=== PATIENT | male | born 1950 | race African-American/Black ===

== ENCOUNTER 2017-02-18 17:03 | Emergency (ER) | payer OTHER ==
[~2017-02-18] VITALS: Ht 172.7 cm; Wt 70.0 kg
[~2017-02-18 17:03] MED LIST: UNK MEDS
[2017-02-18 18:32] LABS: BASOPHILS % 0.3 % (0.0-2.0); EOSINOPHILS % 3.1 % (0.0-5.0); HEMATOCRIT. 37.1 % (42.0-52.0); HEMOGLOBIN. 12.6 g/dL (14.0-18.0); LYMPHOCYTES % 30.4 % (20.0-50.0); MEAN CORPUSCULAR HEMOGLOBIN 33.1 pg (28.0-32.0); MEAN CORPUSCULAR VOLUME 97.4 fL (80.0-94.0); MEAN PLATELET VOLUME 7.7 fl (7.4-10.4); MONOCYTES % 11.6 % (2.0-8.0); NEUTROPHILS % 54.6 % (40.0-76.0); PLATELET 182 x1000/uL (130-400); RED BLOOD CELL COUNT 3.81 mill/uL (4.7-6.1); RED CELL DISTRIBUTION WIDTH 16.8 % (11.6-14.6)
[2017-02-18 18:36] LABS: CHLORIDE 111 mEq/L (98-107)
[2017-02-18 18:40] LABS: CARBON DIOXIDE 25 mEq/L (21-32); ETHANOL BLOOD < 10 mg/dL
[2017-02-18] MEDS ORDERED: POTASSIUM CHLORIDE 20MEQ TABLET SR PO ONE (19:00)
[2017-02-18 20:47] LABS: CLARITY URINE CLEAR (CLEAR); COLOR URINE YELLOW (YELLOW); KETONES URINE NEGATIVE (NEGATIVE); LEUKOCYTE ESTERASE URINE NEGATIVE (NEGATIVE); NITRITE URINE NEGATIVE (NEGATIVE); OCCULT BLOOD URINE NEGATIVE (NEGATIVE); PROTEIN URINE NEGATIVE (NEGATIVE); SPECIFIC GRAVITY URINE 1.018 (1.005-1.030)
[2017-02-18 21:10] LABS: *AMPHETAMINES SCREEN URINE NEGATIVE (NEGATIVE); *BARBITURATES SCREEN URINE NEGATIVE (NEGATIVE); *BENZODIAZEPINES SCREEN URINE NEGATIVE (NEGATIVE); *COCAINE SCREEN URINE PRESUMTIVE POSITIVE (NEGATIVE); CANNABINOID URINE SCREEN NEGATIVE (NEGATIVE); METHADONE URINE SCREEN NEGATIVE (NEGATIVE); OPIATES URINE SCREEN NEGATIVE (NEGATIVE); PHENCYCLIDINE URINE SCREEN NEGATIVE (NEGATIVE)
[2017-02-18 21:43] VITALS: BP 126/83
== END 2017-02-18 21:47 | disposition home or self-care (01) ==
LOC: ER 18:00
DX: R45.851 Suicidal ideations (principal); Z71.89 Other specified counseling; F14.10 Cocaine abuse, uncomplicated; I11.9 Hypertensive heart disease without heart failure; Z95.0 Presence of cardiac pacemaker; F10.10 Alcohol abuse, uncomplicated; Y90.0 Blood alcohol level of less than 20 mg/100 ml
CPT/HCPCS: 36415; 80053; 80305; 80307; 80329; 81003; 85025; 93005; 99285; G0482

== ENCOUNTER 2018-06-04 09:05 | Emergency (ER) | payer MEDICARE, OTHER ==
[~2018-06-04] VITALS: Ht 167.6 cm; Wt 61.0 kg
[2018-06-04] MEDS ORDERED: COLCHICINE 0.6MG TABLET PO ONE (10:45)
[2018-06-04 11:45] VITALS: BP 114/67
== END 2018-06-04 11:55 | disposition home or self-care (01) ==
LOC: ER 09:05
DX: M10.9 Gout, unspecified (principal)
CPT/HCPCS: 99283

== ENCOUNTER 2018-10-17 15:27 | Emergency (ER) | payer MEDICARE, OTHER ==
[~2018-10-17] VITALS: Ht 170.2 cm; Wt 65.0 kg
[2018-10-17] MEDS ORDERED: ALBUTEROL (0.083%) 2.5MG/3ML NEB HHN STA (15:47)
[2018-10-17] MEDS ORDERED: IPRATROPIUM BROMIDE (0.02%) 0.5MG/2.5ML NEB HHN STA (15:47)
[2018-10-17] MEDS ORDERED: METHYLPREDNISOLONE SOD SUCC 125 MG/2 ML VIAL IV STA (15:47)
[2018-10-17 16:19] VITALS: BP 91/57
== END 2018-10-17 17:35 | disposition home or self-care (01) ==
LOC: ER 15:27
DX: J44.1 Chronic obstructive pulmonary disease with (acute) exacerbation (principal); I11.9 Hypertensive heart disease without heart failure; Z95.0 Presence of cardiac pacemaker
CPT/HCPCS: 71045; 93005; 94644; 99285; J2930; J7611

== ENCOUNTER 2019-03-03 10:05 | Emergency (ER) | payer MEDICARE, OTHER ==
[~2019-03-03] VITALS: Ht 167.6 cm; Wt 66.0 kg
[2019-03-03] MEDS ORDERED: FUROSEMIDE 40MG/4ML VIAL IVP ONE (12:15)
[2019-03-03 12:27] LABS: HEMATOCRIT. 36.3 % (42.0-52.0); HEMOGLOBIN. 11.8 g/dL (14.0-18.0); MEAN CORPUSCULAR VOLUME 95.2 fL (80.0-94.0); PLATELET 212 x1000/uL (130-400); RED BLOOD CELL COUNT 3.81 mill/uL (4.7-6.1); RED CELL DISTRIBUTION WIDTH 17.7 % (11.6-14.6)
[2019-03-03 12:36] LABS: CHLORIDE 108 mEq/L (98-107)
[2019-03-03 12:47] LABS: PLATELET ESTIMATE NORMAL
[2019-03-03] MEDS ORDERED: ASPIRIN 81MG TABLET PO ONE (13:30)
[2019-03-03] MEDS ORDERED: NITROGLYCERIN 0.4MG TABLET SL SL PRN (14:00)
[2019-03-03] MEDS ORDERED: MAGNESIUM/ALUMINUM HYDROXIDE/SIMETHICONE 30ML UDC PO PRN (14:00)
[2019-03-03] MEDS ORDERED: CLONIDINE 0.1MG TABLET PO PRN (14:00)
[2019-03-03] MEDS ORDERED: GUAIFENESIN/DM 600MG/30MG ER TAB 12HR PO SCH (14:00)
[2019-03-03] MEDS ORDERED: GUAIFENESIN 200MG/10ML SUGAR FREE UDC PO PRN (14:00)
[2019-03-03] MEDS ORDERED: ACETAMINOPHEN 325MG TABLET PO PRN (14:00)
[2019-03-03] MEDS ORDERED: DIPHENHYDRAMINE 50MG/ML VIAL IV PRN (14:00)
[2019-03-03] MEDS ORDERED: DOCUSATE SODIUM 100MG CAPSULE PO PRN (14:00)
[2019-03-03] MEDS ORDERED: LORAZEPAM 0.5MG TABLET PO PRN (14:00)
[2019-03-03] MEDS ORDERED: TRAMADOL 50MG TABLET PO PRN (14:00)
[2019-03-03] MEDS ORDERED: ONDANSETRON HCL 4MG/2ML INJ IV PRN (14:00)
[2019-03-03] MEDS ORDERED: IPRATROPIUM/ALBUTEROL 0.5-3(2.5)MG/3ML NEB NEB PRN (14:00)
[2019-03-03] MEDS ORDERED: ENOXAPARIN 40MG/0.4ML SYR SUBCUT SCH (14:00)
[2019-03-03 15:08] LABS: VITAMIN B12 SERUM 947 pg/mL (211-911)
[2019-03-03 15:17] LABS: FOLIC ACID (FOLATE) SERUM >20 ng/mL ng/mL (>5.38)
[2019-03-03 15:28] LABS: CREATINE KINASE MB FRACTION 5.4 ng/mL (0.5-3.6)
[2019-03-03 17:15] VITALS: BP 115/73
[2019-03-03] MEDS ORDERED: FAMOTIDINE 20MG TABLET PO SCH (21:00)
[2019-03-03] MEDS ORDERED: SPIRONOLACTONE 25MG TABLET PO SCH (21:00)
[2019-03-03] MEDS ORDERED: ZOLPIDEM TARTRATE 5MG TABLET PO PRN (21:00)
[2019-03-03] MEDS ORDERED: FUROSEMIDE 40MG/4ML VIAL IVP SCH (21:00)
[2019-03-04] MEDS ORDERED: ASPIRIN 325MG EC TABLET PO SCH (09:00)
== END 2019-03-03 17:16 | disposition left against medical advice (07) ==
LOC: ER 10:05 → SUPCPDRO 13:50 → ER 17:16 → CANBEDREQ 18:28
DX: I11.0 Hypertensive heart disease with heart failure (principal); I50.9 Heart failure, unspecified; J96.90 Respiratory failure, unspecified, unspecified whether with hypoxia or hypercapnia; R26.2 Difficulty in walking, not elsewhere classified; J44.9 Chronic obstructive pulmonary disease, unspecified; E44.1 Mild protein-calorie malnutrition; E83.51 Hypocalcemia; D64.9 Anemia, unspecified; F10.10 Alcohol abuse, uncomplicated; Z68.23 Body mass index [BMI] 23.0-23.9, adult; Y90.0 Blood alcohol level of less than 20 mg/100 ml; Z79.899 Other long term (current) drug therapy; Z95.0 Presence of cardiac pacemaker; Z71.41 Alcohol abuse counseling and surveillance of alcoholic
CPT/HCPCS: 36415; 71045; 80053; 80061; 80320; 82550; 82553; 82607; 82746; 83036; 83540; 83550; 83880; 84484; 85025; 93005; 93970; 96374; 99284; J1940; G0480

== ENCOUNTER 2019-03-14 11:24 | Inpatient (IN) | payer MEDICARE, OTHER ==
[~2019-03-14] VITALS: Ht 177.8 cm; Wt 63.5 kg
[2019-03-14] MEDS ORDERED: METHYLPREDNISOLONE SOD SUCC 125 MG/2 ML VIAL IV STA (12:20)
[2019-03-14] MEDS ORDERED: IPRATROPIUM BROMIDE (0.02%) 0.5MG/2.5ML NEB HHN STA (12:20)
[2019-03-14] MEDS ORDERED: MAGNESIUM 2 G PREMIX 50 ML IV STA (12:20)
[2019-03-14] MEDS ORDERED: ALBUTEROL (0.083%) 2.5MG/3ML NEB HHN STA (12:20)
[2019-03-14] MEDS ORDERED: FUROSEMIDE 20MG/2ML VIAL IVP ONE (12:30)
[2019-03-14 13:35] LABS: BASOPHILS % 0.7 % (0.0-2.0); EOSINOPHILS % 0.5 % (0.0-5.0); HEMATOCRIT. 41.8 % (42.0-52.0); HEMOGLOBIN. 13.6 g/dL (14.0-18.0); LYMPHOCYTES % 14.8 % (20.0-50.0); MEAN CORPUSCULAR HEMOGLOBIN 30.3 pg (28.0-32.0); MEAN CORPUSCULAR VOLUME 93.1 fL (80.0-94.0); MONOCYTES % 10.1 % (2.0-8.0); NEUTROPHILS % 73.9 % (40.0-76.0); PLATELET 225 x1000/uL (130-400); RED BLOOD CELL COUNT 4.49 mill/uL (4.7-6.1); RED CELL DISTRIBUTION WIDTH 18.9 % (11.6-14.6)
[2019-03-14 13:42] LABS: CHLORIDE 107 mEq/L (98-107); INR 1.7; PROTHROMBIN TIME 16.7 sec (9.6-11.0)
[2019-03-14] MEDS ORDERED: POTASSIUM CHLORIDE 20MEQ TABLET SR PO ONE (15:15)
[2019-03-14] MEDS ORDERED: ACETAMINOPHEN 325MG TABLET PO PRN (18:00)
[2019-03-14] MEDS ORDERED: IPRATROPIUM/ALBUTEROL 0.5-3(2.5)MG/3ML NEB HHN PRN (18:00)
[2019-03-14] MEDS ORDERED: ONDANSETRON HCL 4MG/2ML INJ IV PRN (18:00)
[2019-03-14 18:25] LABS: CLARITY URINE CLEAR (CLEAR); COLOR URINE YELLOW (YELLOW); KETONES URINE NEGATIVE (NEGATIVE); LEUKOCYTE ESTERASE URINE NEGATIVE (NEGATIVE); NITRITE URINE NEGATIVE (NEGATIVE); OCCULT BLOOD URINE NEGATIVE (NEGATIVE); PROTEIN URINE NEGATIVE (NEGATIVE); SPECIFIC GRAVITY URINE 1.006 (1.005-1.030)
[2019-03-14] MEDS ORDERED: METHYLPREDNISOLONE SOD SUCC 40 MG/ML VIAL IV NR (18:30)
[2019-03-14 18:41] LABS: *AMPHETAMINES SCREEN URINE NEGATIVE (NEGATIVE); *BARBITURATES SCREEN URINE NEGATIVE (NEGATIVE); *BENZODIAZEPINES SCREEN URINE NEGATIVE (NEGATIVE); *COCAINE SCREEN URINE NEGATIVE (NEGATIVE); OPIATES URINE SCREEN NEGATIVE (NEGATIVE)
[2019-03-14 18:42] LABS: CANNABINOID URINE SCREEN NEGATIVE (NEGATIVE); METHADONE URINE SCREEN NEGATIVE (NEGATIVE); PHENCYCLIDINE URINE SCREEN NEGATIVE (NEGATIVE)
[2019-03-14 19:38] LABS: LDL CHOLESTEROL 34 mg/dL (5-100)
[2019-03-14 19:40] LABS: HDL CHOLESTEROL 14 mg/dL (40-59)
[2019-03-14 20:00] LABS: HEPATITIS B SURFACE ANTIGEN NEGATIVE
[2019-03-14 20:18] VITALS: BP 100/73
[2019-03-14 20:29] LABS: HEPATITIS A AB IGM NEGATIVE (NEGATIVE)
[2019-03-15] VITALS: BP 100/63
[2019-03-15] MEDS: ENOXAPARIN 40MG/0.4ML SYR SUBCUT SCH ×2 (01:06→20:50)
[2019-03-15] MEDS: METHYLPREDNISOLONE SOD SUCC 40 MG/ML VIAL IV SCH ×3 (02:09→17:29)
[2019-03-15 04:00] VITALS: BP 99/74
[2019-03-15] MEDS: IPRATROPIUM/ALBUTEROL 0.5-3(2.5)MG/3ML NEB HHN SCH ×6 (04:48→21:11)
[2019-03-15 07:29] LABS: CHLORIDE 108 mEq/L (98-107)
[2019-03-15 07:44] LABS: BASOPHILS % 0.3 % (0.0-2.0); HEMOGLOBIN. 11.1 g/dL (14.0-18.0); LYMPHOCYTES % 11.9 % (20.0-50.0); MEAN CORPUSCULAR HEMOGLOBIN 31.4 pg (28.0-32.0); MEAN CORPUSCULAR VOLUME 93.4 fL (80.0-94.0); MEAN PLATELET VOLUME 9.1 fl (7.4-10.4); MONOCYTES % 3.9 % (2.0-8.0); NEUTROPHILS % 83.9 % (40.0-76.0); PLATELET 172 x1000/uL (130-400); RED BLOOD CELL COUNT 3.53 mill/uL (4.7-6.1); RED CELL DISTRIBUTION WIDTH 18.7 % (11.6-14.6)
[2019-03-15 08:00] VITALS: BP 100/51
[2019-03-15] MEDS ORDERED: FUROSEMIDE 40MG/4ML VIAL IVP SCH (09:00)
[2019-03-15 12:00] VITALS: BP 170/110
[2019-03-15] MEDS ORDERED: CLONIDINE 0.1MG TABLET PO PRN (12:45)
[2019-03-15 16:00] VITALS: BP 127/98
[2019-03-15 20:00] VITALS: BP 134/99
[2019-03-16] VITALS (9 sets, daily range): BP systolic 96–128; BP diastolic 66–98
[2019-03-16] MEDS: IPRATROPIUM/ALBUTEROL 0.5-3(2.5)MG/3ML NEB HHN SCH ×6 (00:35→20:55)
[2019-03-16] MEDS: METHYLPREDNISOLONE SOD SUCC 40 MG/ML VIAL IV SCH ×2 (02:54→18:02)
[2019-03-16] MEDS: PREDNISONE 20MG TABLET PO SCH ×2 (08:54→14:37)
[2019-03-16] MEDS ORDERED: FUROSEMIDE 40MG TABLET PO SCH ×2 (09:00→17:15)
[2019-03-16 09:44] LABS: HEMATOCRIT. 33.7 % (42.0-52.0); HEMOGLOBIN. 10.9 g/dL (14.0-18.0); MEAN CORPUSCULAR HEMOGLOBIN 30.9 pg (28.0-32.0); MEAN CORPUSCULAR VOLUME 95.7 fL (80.0-94.0); MEAN PLATELET VOLUME 9.4 fl (7.4-10.4); PLATELET 180 x1000/uL (130-400); RED BLOOD CELL COUNT 3.52 mill/uL (4.7-6.1); RED CELL DISTRIBUTION WIDTH 18.8 % (11.6-14.6)
[2019-03-16] MEDS ORDERED: POTASSIUM CHLORIDE 20MEQ/PACKET PO SCH (10:45)
[2019-03-16] MEDS: TAMSULOSIN HCL 0.4MG SR CAPSULE PO SCH (14:37)
[2019-03-16] MEDS ORDERED: CARVEDILOL 6.25 MG TABLET PO NR (17:45)
[2019-03-16] MEDS ORDERED: FUROSEMIDE 40MG/4ML VIAL IVP SCH (17:45)
[2019-03-16 17:46] LABS: NUCLEATED RED BLOOD CELLS 1 /100 WBC; PLATELET ESTIMATE NORMAL
[2019-03-16 18:14] LABS: BG BASE EXCESS -12.3 mmol/L (-2.0-2.0); BG CARBOXYHEMOGLOBIN 0.3 % (0.5-1.5); BG DEOXYHEMOGLOBIN 0.2 % (0.0-5.0); BG FRACTION INSPIRED OXYGEN 100; BG HCO3 ACT 8.7 mmol/L (22.0-26.0); BG METHEMOGLOBIN 0.3 % (0.0-1.5); BG OXYGEN SATURATION 99.8 % (92.0-98.5); BG OXYHEMOGLOBIN 99.2 % (94.0-97.0); BG PCO2 13.1 mmHg (35.0-45.0); BG PH 7.442 (7.350-7.450); BG PO2 491.6 mmHg (75.0-100.0); BG SAMPLE SITE RIGHT RADIAL; BG TOTAL HEMOGLOBIN 12.8 g/dL (12.0-18.0); BG VENT MODE MASK - NRB
[2019-03-16] MEDS ORDERED: MORPHINE SULFATE 2 MG/ML CPJ (NOT FOR IM USE) IV PRN (18:15)
[2019-03-16] MEDS: ENOXAPARIN 40MG/0.4ML SYR SUBCUT SCH (21:43)
[2019-03-16] MEDS ORDERED: PIPERACILLIN/TAZOBACTAM 3.375 G/VIAL IV SCH (22:00)
[2019-03-16] MEDS ORDERED: SODIUM BICARBONATE 8.4% 1 MEQ/ML 50ML SYR IV NR (22:15)
[2019-03-16] MEDS ORDERED: VANCOMYCIN 1250MG in DEXTROSE 5% WATER 250ML IV NR (23:00)
[2019-03-16] MEDS: PIPERACILLIN/TAZOBACTAM 3.375 G in DEXT 5% WATER 100 ML IV SCH (23:19)
[2019-03-17] VITALS (81 sets, daily range): BP systolic 47–166; BP diastolic 25–99
[2019-03-17] MEDS: IPRATROPIUM/ALBUTEROL 0.5-3(2.5)MG/3ML NEB HHN SCH ×6 (00:58→20:21)
[2019-03-17] MEDS: METHYLPREDNISOLONE SOD SUCC 40 MG/ML VIAL IV SCH ×3 (01:09→17:15)
[2019-03-17] MEDS: LORAZEPAM 2MG/ML CPJ IV PRN (02:51)
[2019-03-17 05:28] LABS: BG BASE EXCESS -14.7 mmol/L (-2.0-2.0); BG CARBOXYHEMOGLOBIN 0.5 % (0.5-1.5); BG FRACTION INSPIRED OXYGEN 60; BG HCO3 ACT 10.7 mmol/L (22.0-26.0); BG METHEMOGLOBIN 0.3 % (0.0-1.5); BG OXYHEMOGLOBIN 98.2 % (94.0-97.0); BG PCO2 24.8 mmHg (35.0-45.0); BG PH 7.252 (7.350-7.450); BG PO2 182.2 mmHg (75.0-100.0); BG SAMPLE SITE RIGHT RADIAL; BG TOTAL HEMOGLOBIN 13.2 g/dL (12.0-18.0)
[2019-03-17] MEDS ORDERED: DEXTROSE 50% WATER 50ML SYRINGE IV ONE (05:50)
[2019-03-17] MEDS: PIPERACILLIN/TAZOBACTAM 3.375 G in DEXT 5% WATER 100 ML IV SCH ×3 (06:00→21:32)
[2019-03-17] MEDS ORDERED: PROPOFOL 10MG/ML 100ML 100 ML IV PRN (06:30)
[2019-03-17] MEDS ORDERED: SUCCINYLCHOLINE CHLORIDE 200MG/10ML IV ONE (06:45)
[2019-03-17] MEDS ORDERED: ETOMIDATE 2MG/ML 10ML VIAL IV ONE (06:45)
[2019-03-17] MEDS ORDERED: PHENYLEPHRINE 40 MG in DEXT 5% WATER 246 ML IV PRN (07:00)
[2019-03-17] MEDS ORDERED: NOREPINEPHRINE 32 MG in DEXT 5% WATER 468 ML IV PRN (07:00)
[2019-03-17] MEDS: SODIUM BICARBONATE 100 MEQ in DEXTROSE 5% WATER 1,000 ML IV SCH ×2 (07:00→21:33)
[2019-03-17] MEDS: TAMSULOSIN HCL 0.4MG SR CAPSULE PO SCH (08:55)
[2019-03-17] MEDS ORDERED: CARVEDILOL 6.25 MG TABLET PO SCH (09:00)
[2019-03-17 09:27] LABS: BG BASE EXCESS -10.6 mmol/L (-2.0-2.0); BG CARBOXYHEMOGLOBIN 0.1 % (0.5-1.5); BG DEOXYHEMOGLOBIN 0.1 % (0.0-5.0); BG FRACTION INSPIRED OXYGEN 100; BG HCO3 ACT 12.6 mmol/L (22.0-26.0); BG METHEMOGLOBIN 0.3 % (0.0-1.5); BG OXYGEN SATURATION 99.9 % (92.0-98.5); BG OXYHEMOGLOBIN 99.5 % (94.0-97.0); BG PH 7.375 (7.350-7.450); BG SAMPLE SITE RIGHT RADIAL; BG TIDAL VOLUME(mL) 500 mL; BG TOTAL HEMOGLOBIN 12.3 g/dL (12.0-18.0); BG VENT MODE VENT - A/C; BG VENT RATE 18 set
[2019-03-17] MEDS ORDERED: LIDOCAINE HCL 1% 20ML VIAL (Pyxis) INJ ONE (10:51)
[2019-03-17] MEDS ORDERED: SODIUM BICARBONATE 4% (2.4MEQ) 5ML VIAL IV ONE (10:51)
[2019-03-17] MEDS ORDERED: NITROGLYCERIN 50MG PREMIX 250 ML IV PRN (11:30)
[2019-03-17] MEDS ORDERED: MIDAZOLAM HCL 100 MG in DEXT 5% WATER 80 ML IV PRN (11:45)
[2019-03-17] MEDS: DOBUTAMINE 250MG PREMIX 250 ML IV SCH (13:01)
[2019-03-17 13:17] LABS: HEMATOCRIT. 35.8 % (42.0-52.0); HEMOGLOBIN. 11.6 g/dL (14.0-18.0); MEAN CORPUSCULAR HEMOGLOBIN 30.3 pg (28.0-32.0); MEAN CORPUSCULAR VOLUME 93.9 fL (80.0-94.0); PLATELET 183 x1000/uL (130-400); RED BLOOD CELL COUNT 3.81 mill/uL (4.7-6.1); RED CELL DISTRIBUTION WIDTH 19.6 % (11.6-14.6)
[2019-03-17 13:21] LABS: INR 1.9; PROTHROMBIN TIME 19.3 sec (9.6-11.0)
[2019-03-17 13:49] LABS: NUCLEATED RED BLOOD CELLS 5 /100 WBC; PLATELET ESTIMATE NORMAL
[2019-03-17] MEDS: VANCOMYCIN 1 G PREMIX 200 ML IV SCH (14:00)
[2019-03-17] MEDS: FENTANYL CITRATE/PF 500 MCG in SODIUM CHLORIDE 0.9% 40 ML IV PRN (17:11)
[2019-03-17] MEDS: PANTOPRAZOLE SODIUM 40 MG/VIAL IV SCH (17:14)
[2019-03-18] VITALS (97 sets, daily range): BP systolic 79–120; BP diastolic 48–81
[2019-03-18] MEDS: IPRATROPIUM/ALBUTEROL 0.5-3(2.5)MG/3ML NEB HHN SCH ×6 (00:06→20:51)
[2019-03-18] MEDS: PIPERACILLIN/TAZOBACTAM 3.375 G in DEXT 5% WATER 100 ML IV SCH ×3 (05:33→21:35)
[2019-03-18 05:46] LABS: HEMATOCRIT. 35.7 % (42.0-52.0); HEMOGLOBIN. 11.8 g/dL (14.0-18.0); MEAN CORPUSCULAR HEMOGLOBIN 30.6 pg (28.0-32.0); MEAN CORPUSCULAR VOLUME 92.9 fL (80.0-94.0); MEAN PLATELET VOLUME 9.6 fl (7.4-10.4); PLATELET 142 x1000/uL (130-400); RED BLOOD CELL COUNT 3.84 mill/uL (4.7-6.1); RED CELL DISTRIBUTION WIDTH 19.4 % (11.6-14.6)
[2019-03-18 05:52] LABS: INR 1.9; PROTHROMBIN TIME 18.8 sec (9.6-11.0)
[2019-03-18 07:43] LABS: PLATELET ESTIMATE NORMAL
[2019-03-18 07:48] LABS: BG BASE EXCESS 5.4 mmol/L (-2.0-2.0); BG CARBOXYHEMOGLOBIN 0.3 % (0.5-1.5); BG DEOXYHEMOGLOBIN 3.5 % (0.0-5.0); BG FRACTION INSPIRED OXYGEN 40; BG HCO3 ACT 25.9 mmol/L (22.0-26.0); BG METHEMOGLOBIN 0.3 % (0.0-1.5); BG OXYGEN SATURATION 96.5 % (92.0-98.5); BG OXYHEMOGLOBIN 95.9 % (94.0-97.0); BG PH 7.616 (7.350-7.450); BG PO2 84.7 mmHg (75.0-100.0); BG SAMPLE SITE RIGHT RADIAL; BG TIDAL VOLUME(mL) 500 mL; BG TOTAL HEMOGLOBIN 11.9 g/dL (12.0-18.0); BG VENT MODE VENT - A/C; BG VENT RATE 18 set
[2019-03-18] MEDS: TAMSULOSIN HCL 0.4MG SR CAPSULE PO SCH (08:10)
[2019-03-18] MEDS: PANTOPRAZOLE SODIUM 40 MG/VIAL IV SCH ×2 (08:24→16:37)
[2019-03-18] MEDS: METHYLPREDNISOLONE SOD SUCC 40 MG/ML VIAL IV SCH ×2 (08:24→16:37)
[2019-03-18] MEDS ORDERED: KCL 20MEQ/100ML PREMIX 100 ML IV SCH (09:00)
[2019-03-18] MEDS: VANCOMYCIN 1 G PREMIX 200 ML IV SCH (10:00)
[2019-03-18] MEDS: DOBUTAMINE 250MG PREMIX 250 ML IV SCH (10:15)
[2019-03-18] MEDS: DEXT 5%/0.45% NACL 1000ML 1,000 ML IV SCH (10:30)
[2019-03-18] MEDS: MIDODRINE HCL 5MG TABLET PO SCH ×2 (11:41→16:37)
[2019-03-18] MEDS ORDERED: POTASSIUM CHLORIDE INJ 40 MEQ in DEXT 5% WATER 250 ML IV SCH (12:00)
[2019-03-18] MEDS: FENTANYL CITRATE/PF 500 MCG in SODIUM CHLORIDE 0.9% 40 ML IV PRN (22:45)
[2019-03-19] VITALS (95 sets, daily range): BP systolic 74–119; BP diastolic 31–80
[2019-03-19] MEDS: IPRATROPIUM/ALBUTEROL 0.5-3(2.5)MG/3ML NEB HHN SCH ×6 (00:22→20:43)
[2019-03-19] MEDS: DOBUTAMINE 250MG PREMIX 250 ML IV SCH (05:51)
[2019-03-19 05:52] LABS: HEMATOCRIT 37.8 % (42.0-52.0); HEMOGLOBIN 12.5 g/dL (14.0-18.0); MEAN CORPUSCULAR HEMOGLOBIN 30.2 pg (28.0-32.0); MEAN CORPUSCULAR VOLUME 91.8 fL (80.0-94.0); PLATELET 128 x1000/uL (130-400); RED BLOOD CELL COUNT 4.12 mill/uL (4.7-6.1); RED CELL DISTRIBUTION WIDTH 19.7 % (11.6-14.6)
[2019-03-19] MEDS: DEXT 5%/0.45% NACL 1000ML 1,000 ML IV SCH (05:52)
[2019-03-19] MEDS: PIPERACILLIN/TAZOBACTAM 3.375 G in DEXT 5% WATER 100 ML IV SCH ×3 (05:52→21:49)
[2019-03-19 06:01] LABS: INR 1.7; PROTHROMBIN TIME 17.6 sec (9.6-11.0)
[2019-03-19 06:04] LABS: CHLORIDE 93 mEq/L (98-107)
[2019-03-19 08:37] LABS: BG BASE EXCESS 11.9 mmol/L (-2.0-2.0); BG CARBOXYHEMOGLOBIN 0.1 % (0.5-1.5); BG FRACTION INSPIRED OXYGEN 40; BG HCO3 ACT 33.5 mmol/L (22.0-26.0); BG METHEMOGLOBIN 0.2 % (0.0-1.5); BG OXYHEMOGLOBIN 98.7 % (94.0-97.0); BG PCO2 32.9 mmHg (35.0-45.0); BG PH 7.626 (7.350-7.450); BG SAMPLE SITE RIGHT BRACHIAL; BG TIDAL VOLUME(mL) 500 mL; BG TOTAL HEMOGLOBIN 11.5 g/dL (12.0-18.0); BG VENT MODE VENT - A/C; BG VENT RATE 14 set
[2019-03-19] MEDS ORDERED: POTASSIUM CHLORIDE INJ 40 MEQ in DEXT 5% WATER 250 ML IV NR (09:00)
[2019-03-19] MEDS: METHYLPREDNISOLONE SOD SUCC 40 MG/ML VIAL IV SCH ×2 (09:05→16:17)
[2019-03-19] MEDS: PANTOPRAZOLE SODIUM 40 MG/VIAL IV SCH ×2 (09:05→16:17)
[2019-03-19] MEDS: MIDODRINE HCL 5MG TABLET PO SCH ×3 (09:06→19:42)
[2019-03-19] MEDS: DEXT 5%/0.45% NACL KCL 20MEQ/L 1,000 ML IV SCH (09:07)
[2019-03-19 09:21] LABS: PHOSPHORUS 2.4 mg/dL (2.5-4.9)
[2019-03-19] MEDS ORDERED: MAGNESIUM 4 G PREMIX 100 ML IV NR (11:00)
[2019-03-19 11:09] LABS: BG CARBOXYHEMOGLOBIN 0.4 % (0.5-1.5); BG DEOXYHEMOGLOBIN 1.1 % (0.0-5.0); BG FRACTION INSPIRED OXYGEN 40; BG HCO3 ACT 35.6 mmol/L (22.0-26.0); BG METHEMOGLOBIN 0.9 % (0.0-1.5); BG OXYGEN SATURATION 98.9 % (92.0-98.5); BG OXYHEMOGLOBIN 97.6 % (94.0-97.0); BG PCO2 37.4 mmHg (35.0-45.0); BG PH 7.596 (7.350-7.450); BG PO2 166.7 mmHg (75.0-100.0); BG PRESSURE SUPPORT 8; BG SAMPLE SITE RIGHT BRACHIAL; BG TOTAL HEMOGLOBIN 12.7 g/dL (12.0-18.0); BG VENT MODE VENT - CPAP
[2019-03-19] MEDS: VANCOMYCIN 1 G PREMIX 200 ML IV SCH (13:19)
[2019-03-19] MEDS ORDERED: POTASSIUM-SODIUM PHOSPHATE POWDER PACKET PO NR (14:30)
[2019-03-19 15:41] LABS: INR 1.6; PROTHROMBIN TIME 16.4 sec (9.6-11.0)
[2019-03-19] MEDS ORDERED: KCL 20MEQ/100ML PREMIX 100 ML IV SCH (21:30)
[2019-03-19] MEDS: LORAZEPAM 2MG/ML CPJ IV PRN (22:22)
[2019-03-20] VITALS (86 sets, daily range): BP systolic 71–133; BP diastolic 26–113
[2019-03-20] MEDS: IPRATROPIUM/ALBUTEROL 0.5-3(2.5)MG/3ML NEB HHN SCH ×6 (00:16→20:25)
[2019-03-20] MEDS ORDERED: NOREPINEPHRINE 16 MG in DEXT 5% WATER 234 ML IV PRN (02:01)
[2019-03-20] MEDS: LORAZEPAM 2MG/ML CPJ IV PRN (04:01)
[2019-03-20] MEDS: DOBUTAMINE 250MG PREMIX 250 ML IV SCH ×2 (04:01→18:17)
[2019-03-20] MEDS: PIPERACILLIN/TAZOBACTAM 3.375 G in DEXT 5% WATER 100 ML IV SCH ×3 (05:11→21:07)
[2019-03-20] MEDS: DEXT 5%/0.45% NACL KCL 20MEQ/L 1,000 ML IV SCH (05:11)
[2019-03-20 06:49] LABS: HEMATOCRIT. 34.2 % (42.0-52.0); HEMOGLOBIN. 11.2 g/dL (14.0-18.0); MEAN CORPUSCULAR HEMOGLOBIN 29.4 pg (28.0-32.0); MEAN CORPUSCULAR VOLUME 90.4 fL (80.0-94.0); MEAN PLATELET VOLUME 9.2 fl (7.4-10.4); PLATELET 132 x1000/uL (130-400); RED BLOOD CELL COUNT 3.79 mill/uL (4.7-6.1); RED CELL DISTRIBUTION WIDTH 19.5 % (11.6-14.6)
[2019-03-20 07:07] LABS: CHLORIDE 93 mEq/L (98-107)
[2019-03-20 07:37] LABS: INR 1.5; PROTHROMBIN TIME 15.2 sec (9.6-11.0)
[2019-03-20] MEDS: PANTOPRAZOLE SODIUM 40 MG/VIAL IV SCH ×2 (09:04→18:17)
[2019-03-20] MEDS: METHYLPREDNISOLONE SOD SUCC 40 MG/ML VIAL IV SCH ×2 (09:04→18:17)
[2019-03-20] MEDS: MIDODRINE HCL 5MG TABLET PO SCH ×3 (09:05→18:17)
[2019-03-20] MEDS: VANCOMYCIN 1 G PREMIX 200 ML IV SCH (09:05)
[2019-03-20] MEDS ORDERED: POTASSIUM CHLORIDE INJ 40 MEQ in DEXT 5% WATER 250 ML IV NR (10:15)
[2019-03-20 17:10] LABS: PLATELET ESTIMATE NORMAL
[2019-03-20 17:27] LABS: BG BASE EXCESS 8.5 mmol/L (-2.0-2.0); BG CARBOXYHEMOGLOBIN 0.4 % (0.5-1.5); BG DEOXYHEMOGLOBIN 0.9 % (0.0-5.0); BG HCO3 ACT 31.8 mmol/L (22.0-26.0); BG METHEMOGLOBIN 0.2 % (0.0-1.5); BG OXYGEN SATURATION 99.1 % (92.0-98.5); BG OXYHEMOGLOBIN 98.5 % (94.0-97.0); BG PCO2 39.1 mmHg (35.0-45.0); BG PH 7.528 (7.350-7.450); BG SAMPLE SITE RIGHT BRACHIAL; BG TIDAL VOLUME(mL) 500 mL; BG TOTAL HEMOGLOBIN 12.7 g/dL (12.0-18.0); BG VENT MODE VENT - SIMV; BG VENT RATE 8 set
[2019-03-20] MEDS: DIGOXIN 250MCG TABLET PO SCH (18:18)
[2019-03-21] VITALS (97 sets, daily range): BP systolic 73–149; BP diastolic 49–102
[2019-03-21] MEDS: DEXT 5%/0.45% NACL KCL 20MEQ/L 1,000 ML IV SCH ×2 (00:09→19:42)
[2019-03-21] MEDS: IPRATROPIUM/ALBUTEROL 0.5-3(2.5)MG/3ML NEB HHN SCH ×6 (00:26→20:12)
[2019-03-21] MEDS: LORAZEPAM 2MG/ML CPJ IV PRN ×2 (00:32→21:12)
[2019-03-21] MEDS: VANCOMYCIN 1 G PREMIX 200 ML IV SCH (01:12)
[2019-03-21] MEDS ORDERED: NOREPINEPHRINE 8 MG in DEXTROSE 5% WATER 250 ML IV PRN (02:00)
[2019-03-21] MEDS: PIPERACILLIN/TAZOBACTAM 3.375 G in DEXT 5% WATER 100 ML IV SCH ×3 (05:50→21:12)
[2019-03-21 05:51] LABS: HEMATOCRIT. 32.7 % (42.0-52.0); HEMOGLOBIN. 10.6 g/dL (14.0-18.0); MEAN CORPUSCULAR VOLUME 93.1 fL (80.0-94.0); MEAN PLATELET VOLUME 9.2 fl (7.4-10.4); PLATELET 117 x1000/uL (130-400); RED BLOOD CELL COUNT 3.51 mill/uL (4.7-6.1); RED CELL DISTRIBUTION WIDTH 19.1 % (11.6-14.6)
[2019-03-21 06:10] LABS: CHLORIDE 95 mEq/L (98-107)
[2019-03-21] MEDS: DOBUTAMINE 250MG PREMIX 250 ML IV SCH ×2 (07:48→16:48)
[2019-03-21] MEDS: PANTOPRAZOLE SODIUM 40 MG/VIAL IV SCH ×2 (08:12→17:52)
[2019-03-21] MEDS: METHYLPREDNISOLONE SOD SUCC 40 MG/ML VIAL IV SCH ×2 (08:12→17:52)
[2019-03-21] MEDS: MIDODRINE HCL 5MG TABLET PO SCH ×3 (08:13→17:52)
[2019-03-21 08:14] LABS: BG BASE EXCESS 5.1 mmol/L (-2.0-2.0); BG CARBOXYHEMOGLOBIN 0.3 % (0.5-1.5); BG DEOXYHEMOGLOBIN 1.3 % (0.0-5.0); BG HCO3 ACT 28.1 mmol/L (22.0-26.0); BG METHEMOGLOBIN 0.3 % (0.0-1.5); BG OXYGEN SATURATION 98.7 % (92.0-98.5); BG OXYHEMOGLOBIN 98.1 % (94.0-97.0); BG PCO2 35.6 mmHg (35.0-45.0); BG PH 7.515 (7.350-7.450); BG PO2 138.2 mmHg (75.0-100.0); BG SAMPLE SITE RIGHT BRACHIAL; BG TIDAL VOLUME(mL) 500 mL; BG TOTAL HEMOGLOBIN 11.2 g/dL (12.0-18.0); BG VENT MODE VENT - SIMV; BG VENT RATE 8 set
[2019-03-21] MEDS ORDERED: BISACODYL 10MG SUPP PR NR (09:45)
[2019-03-21 10:57] LABS: NUCLEATED RED BLOOD CELLS 2 /100 WBC
[2019-03-21 10:58] LABS: PLATELET ESTIMATE DECREASED
[2019-03-21] MEDS: DIGOXIN 250MCG TABLET PO SCH (17:52)
[2019-03-21] MEDS: METOCLOPRAMIDE HCL 10MG/2ML VIAL IV SCH ×2 (19:42→23:24)
[2019-03-22] VITALS (92 sets, daily range): BP systolic 98–148; BP diastolic 50–93
[2019-03-22] MEDS: IPRATROPIUM/ALBUTEROL 0.5-3(2.5)MG/3ML NEB HHN SCH ×6 (00:15→20:44)
[2019-03-22] MEDS: METOCLOPRAMIDE HCL 10MG/2ML VIAL IV SCH ×4 (05:21→23:59)
[2019-03-22] MEDS: PIPERACILLIN/TAZOBACTAM 3.375 G in DEXT 5% WATER 100 ML IV SCH ×3 (05:21→21:18)
[2019-03-22 05:39] LABS: HEMATOCRIT. 34.4 % (42.0-52.0); MEAN CORPUSCULAR HEMOGLOBIN 29.2 pg (28.0-32.0); MEAN CORPUSCULAR VOLUME 91.1 fL (80.0-94.0); MEAN PLATELET VOLUME 9.3 fl (7.4-10.4); PLATELET 118 x1000/uL (130-400); RED BLOOD CELL COUNT 3.77 mill/uL (4.7-6.1); RED CELL DISTRIBUTION WIDTH 19.3 % (11.6-14.6)
[2019-03-22 05:56] LABS: CHLORIDE 97 mEq/L (98-107)
[2019-03-22] MEDS: MIDODRINE HCL 5MG TABLET PO SCH ×3 (08:13→17:08)
[2019-03-22] MEDS: PANTOPRAZOLE SODIUM 40 MG/VIAL IV SCH ×2 (08:13→17:08)
[2019-03-22] MEDS: METHYLPREDNISOLONE SOD SUCC 40 MG/ML VIAL IV SCH ×2 (08:13→17:08)
[2019-03-22] MEDS: VANCOMYCIN 1 G PREMIX 200 ML IV SCH (08:13)
[2019-03-22] MEDS: DOBUTAMINE 250MG PREMIX 250 ML IV SCH (08:14)
[2019-03-22] MEDS: FENTANYL CITRATE/PF 500 MCG in SODIUM CHLORIDE 0.9% 40 ML IV PRN (08:37)
[2019-03-22] MEDS ORDERED: NA PHOS,M-B/NA PHOS,DI-BA ENEMA 118ML PR NR (10:00)
[2019-03-22 11:05] LABS: PLATELET ESTIMATE DECREASED
[2019-03-22] MEDS: DEXT 5%/0.45% NACL 1000ML 1,000 ML IV SCH (17:02)
[2019-03-22] MEDS: DIGOXIN 250MCG TABLET PO SCH (17:09)
[2019-03-22] MEDS: BUDESONIDE 0.5MG/2ML NEB HHN SCH (20:44)
[2019-03-22] MEDS: LORAZEPAM 2MG/ML CPJ IV PRN (22:40)
[2019-03-23] VITALS (99 sets, daily range): BP systolic 68–163; BP diastolic 53–96
[2019-03-23] MEDS: IPRATROPIUM/ALBUTEROL 0.5-3(2.5)MG/3ML NEB HHN SCH ×7 (00:21→23:58)
[2019-03-23] MEDS: DOBUTAMINE 250MG PREMIX 250 ML IV SCH ×2 (01:06→12:35)
[2019-03-23 06:08] LABS: HEMATOCRIT. 34.4 % (42.0-52.0); HEMOGLOBIN. 11.2 g/dL (14.0-18.0); MEAN CORPUSCULAR HEMOGLOBIN 29.9 pg (28.0-32.0); MEAN PLATELET VOLUME 9.1 fl (7.4-10.4); PLATELET 108 x1000/uL (130-400); RED BLOOD CELL COUNT 3.74 mill/uL (4.7-6.1); RED CELL DISTRIBUTION WIDTH 19.4 % (11.6-14.6)
[2019-03-23 06:12] LABS: CHLORIDE 96 mEq/L (98-107)
[2019-03-23] MEDS: PIPERACILLIN/TAZOBACTAM 3.375 G in DEXT 5% WATER 100 ML IV SCH ×3 (06:13→21:09)
[2019-03-23] MEDS: METOCLOPRAMIDE HCL 10MG/2ML VIAL IV SCH ×4 (06:13→23:43)
[2019-03-23] MEDS: LORAZEPAM 2MG/ML CPJ IV PRN ×2 (06:32→15:14)
[2019-03-23] MEDS: BUDESONIDE 0.5MG/2ML NEB HHN SCH ×2 (08:02→20:16)
[2019-03-23 08:41] LABS: PLATELET ESTIMATE SLIGHTLY DECREASED
[2019-03-23] MEDS: MIDODRINE HCL 5MG TABLET PO SCH ×3 (09:00→17:09)
[2019-03-23] MEDS: VANCOMYCIN 1 G PREMIX 200 ML IV SCH (09:03)
[2019-03-23] MEDS: PANTOPRAZOLE SODIUM 40 MG/VIAL IV SCH ×2 (09:03→17:03)
[2019-03-23] MEDS: METHYLPREDNISOLONE SOD SUCC 40 MG/ML VIAL IV SCH ×2 (09:03→17:03)
[2019-03-23 10:49] LABS: BG BASE EXCESS 7.2 mmol/L (-2.0-2.0); BG CARBOXYHEMOGLOBIN 0.1 % (0.5-1.5); BG DEOXYHEMOGLOBIN 1.2 % (0.0-5.0); BG FRACTION INSPIRED OXYGEN 40; BG HCO3 ACT 31.5 mmol/L (22.0-26.0); BG METHEMOGLOBIN 0.3 % (0.0-1.5); BG OXYGEN SATURATION 98.8 % (92.0-98.5); BG OXYHEMOGLOBIN 98.4 % (94.0-97.0); BG PCO2 43.5 mmHg (35.0-45.0); BG PH 7.478 (7.350-7.450); BG PO2 153.9 mmHg (75.0-100.0); BG PRESSURE SUPPORT 8; BG SAMPLE SITE PA LINE; BG TOTAL HEMOGLOBIN 11.5 g/dL (12.0-18.0); BG VENT MODE VENT - CPAP
[2019-03-23 11:36] LABS: PHOSPHORUS 1.2 mg/dL (2.5-4.9)
[2019-03-23] MEDS: DEXT 5%/0.45% NACL 1000ML 1,000 ML IV SCH (12:34)
[2019-03-23 13:22] LABS: BG BASE EXCESS 5.7 mmol/L (-2.0-2.0); BG CARBOXYHEMOGLOBIN 0.5 % (0.5-1.5); BG DEOXYHEMOGLOBIN 1.2 % (0.0-5.0); BG FRACTION INSPIRED OXYGEN 40; BG METHEMOGLOBIN 0.2 % (0.0-1.5); BG OXYGEN SATURATION 98.8 % (92.0-98.5); BG OXYHEMOGLOBIN 98.1 % (94.0-97.0); BG PCO2 42.2 mmHg (35.0-45.0); BG PH 7.469 (7.350-7.450); BG PO2 138.1 mmHg (75.0-100.0); BG PRESSURE SUPPORT 8; BG SAMPLE SITE RIGHT RADIAL; BG TOTAL HEMOGLOBIN 11.3 g/dL (12.0-18.0); BG VENT MODE VENT - CPAP
[2019-03-23] MEDS: DIGOXIN 250MCG TABLET PO SCH (17:04)
[2019-03-23] MEDS: DILTIAZEM HCL 5MG/ML 5ML VIAL IV PRN (21:10)
[2019-03-23] MEDS: DILTIAZEM HCL 30MG TABLET PO SCH (23:43)
[2019-03-24] VITALS (75 sets, daily range): BP systolic 92–151; BP diastolic 41–112
[2019-03-24] MEDS: LORAZEPAM 2MG/ML CPJ IV PRN ×2 (00:01→19:23)
[2019-03-24] MEDS: DILTIAZEM HCL 5MG/ML 5ML VIAL IV PRN (02:35)
[2019-03-24] MEDS: DOBUTAMINE 250MG PREMIX 250 ML IV SCH (02:52)
[2019-03-24] MEDS: IPRATROPIUM/ALBUTEROL 0.5-3(2.5)MG/3ML NEB HHN SCH ×5 (04:10→21:28)
[2019-03-24] MEDS: DILTIAZEM HCL 30MG TABLET PO SCH (06:00)
[2019-03-24 06:17] LABS: HEMATOCRIT. 32.2 % (42.0-52.0); HEMOGLOBIN. 10.5 g/dL (14.0-18.0); MEAN CORPUSCULAR HEMOGLOBIN 29.5 pg (28.0-32.0); MEAN PLATELET VOLUME 9.2 fl (7.4-10.4); PLATELET 106 x1000/uL (130-400); RED BLOOD CELL COUNT 3.54 mill/uL (4.7-6.1); RED CELL DISTRIBUTION WIDTH 19.9 % (11.6-14.6)
[2019-03-24 06:18] LABS: CHLORIDE 96 mEq/L (98-107)
[2019-03-24] MEDS: METOCLOPRAMIDE HCL 10MG/2ML VIAL IV SCH ×4 (06:44→23:11)
[2019-03-24] MEDS: BUDESONIDE 0.5MG/2ML NEB HHN SCH ×2 (07:59→21:28)
[2019-03-24] MEDS: DEXT 5%/0.45% NACL 1000ML 1,000 ML IV SCH (08:00)
[2019-03-24] MEDS: MIDODRINE HCL 5MG TABLET PO SCH ×3 (09:32→18:27)
[2019-03-24] MEDS: PANTOPRAZOLE SODIUM 40 MG/VIAL IV SCH ×2 (09:32→18:24)
[2019-03-24] MEDS: METHYLPREDNISOLONE SOD SUCC 40 MG/ML VIAL IV SCH (09:32)
[2019-03-24] MEDS ORDERED: MAGNESIUM 2 G PREMIX 50 ML IV SCH (10:00)
[2019-03-24 10:10] LABS: PLATELET ESTIMATE SLIGHTLY DECREASED
[2019-03-24] MEDS ORDERED: SODIUM PHOS,M-BASIC-D-BASIC 20 MM in DEXT 5% WATER 243.3333 ML IV SCH (11:00)
[2019-03-24] MEDS: DOCUSATE SODIUM SUGAR FREE 100MG/10ML UDC NG SCH (11:04)
[2019-03-24] MEDS: DILTIAZEM HCL 60MG TABLET PO SCH ×2 (14:31→21:10)
[2019-03-24] MEDS: DIGOXIN 250MCG TABLET PO SCH (18:26)
[2019-03-25] VITALS (12 sets, daily range): BP systolic 92–122; BP diastolic 54–83
[2019-03-25] MEDS: IPRATROPIUM/ALBUTEROL 0.5-3(2.5)MG/3ML NEB HHN SCH ×6 (01:15→20:33)
[2019-03-25] MEDS: LORAZEPAM 2MG/ML CPJ IV PRN ×2 (02:25→22:12)
[2019-03-25] MEDS: DEXT 5%/0.45% NACL 1000ML 1,000 ML IV SCH ×2 (04:30→22:13)
[2019-03-25] MEDS: DILTIAZEM HCL 60MG TABLET PO SCH ×3 (05:22→21:04)
[2019-03-25] MEDS: METOCLOPRAMIDE HCL 10MG/2ML VIAL IV SCH ×4 (05:33→23:04)
[2019-03-25 07:00] LABS: HEMOGLOBIN. 11.4 g/dL (14.0-18.0); MEAN CORPUSCULAR HEMOGLOBIN 29.5 pg (28.0-32.0); MEAN CORPUSCULAR VOLUME 90.5 fL (80.0-94.0); MEAN PLATELET VOLUME 9.3 fl (7.4-10.4); PLATELET 126 x1000/uL (130-400); RED BLOOD CELL COUNT 3.87 mill/uL (4.7-6.1); RED CELL DISTRIBUTION WIDTH 19.8 % (11.6-14.6)
[2019-03-25] MEDS ORDERED: PREDNISONE 20MG TABLET PO SCH (07:00)
[2019-03-25] MEDS: BUDESONIDE 0.5MG/2ML NEB HHN SCH ×2 (07:29→20:33)
[2019-03-25 08:13] LABS: CHLORIDE 98 mEq/L (98-107)
[2019-03-25 08:20] LABS: PHOSPHORUS 4.8 mg/dL (2.5-4.9)
[2019-03-25] MEDS: PANTOPRAZOLE SODIUM 40 MG/VIAL IV SCH ×2 (08:26→16:31)
[2019-03-25] MEDS: DOCUSATE SODIUM SUGAR FREE 100MG/10ML UDC NG SCH (08:26)
[2019-03-25] MEDS: MIDODRINE HCL 5MG TABLET PO SCH ×3 (08:27→16:30)
[2019-03-25 11:04] LABS: PLATELET ESTIMATE SLIGHTLY DECREASED
[2019-03-25] MEDS: FUROSEMIDE 40MG/4ML VIAL IVP SCH (11:52)
[2019-03-25] MEDS: PIPERACILLIN SODIUM/TAZOBACTAM 4.5 G in DEXT 5% WATER 100 ML IV SCH ×3 (11:56→23:07)
[2019-03-25] MEDS: ACETYLCYSTEINE 100MG/ML 10% VIAL 4ML INH SCH (15:42)
[2019-03-25] MEDS: DIGOXIN 250MCG TABLET PO SCH (17:19)
[2019-03-26] VITALS (12 sets, daily range): BP systolic 100–134; BP diastolic 33–74
[2019-03-26] MEDS: ACETYLCYSTEINE 100MG/ML 10% VIAL 4ML INH SCH ×3 (01:23→15:51)
[2019-03-26] MEDS: IPRATROPIUM/ALBUTEROL 0.5-3(2.5)MG/3ML NEB HHN SCH ×6 (01:24→20:56)
[2019-03-26] MEDS: DILTIAZEM HCL 60MG TABLET PO SCH ×2 (05:24→14:00)
[2019-03-26] MEDS: PIPERACILLIN SODIUM/TAZOBACTAM 4.5 G in DEXT 5% WATER 100 ML IV SCH ×3 (05:30→18:10)
[2019-03-26] MEDS: METOCLOPRAMIDE HCL 10MG/2ML VIAL IV SCH ×3 (05:31→18:10)
[2019-03-26] MEDS ORDERED: PREDNISONE 20MG TABLET PO SCH (07:20)
[2019-03-26 07:29] LABS: HEMATOCRIT. 31.2 % (42.0-52.0); HEMOGLOBIN. 10.4 g/dL (14.0-18.0); MEAN CORPUSCULAR HEMOGLOBIN 29.9 pg (28.0-32.0); MEAN CORPUSCULAR VOLUME 89.6 fL (80.0-94.0); PLATELET 103 x1000/uL (130-400); RED BLOOD CELL COUNT 3.48 mill/uL (4.7-6.1)
[2019-03-26] MEDS: PANTOPRAZOLE SODIUM 40 MG/VIAL IV SCH ×2 (07:59→18:10)
[2019-03-26] MEDS: MIDODRINE HCL 5MG TABLET PO SCH ×3 (07:59→18:24)
[2019-03-26] MEDS: FUROSEMIDE 40MG/4ML VIAL IVP SCH ×3 (08:00→18:10)
[2019-03-26] MEDS: DOCUSATE SODIUM SUGAR FREE 100MG/10ML UDC NG SCH (08:00)
[2019-03-26 08:11] LABS: CHLORIDE 99 mEq/L (98-107)
[2019-03-26] MEDS: DEXT 5%/0.45% NACL 1000ML 1,000 ML IV SCH (09:00)
[2019-03-26] MEDS ORDERED: POTASSIUM CHLORIDE 20MEQ TABLET SR PO NR (10:45)
[2019-03-26] MEDS: LORAZEPAM 2MG/ML CPJ IV PRN (16:12)
[2019-03-26 20:01] LABS: PLATELET ESTIMATE SLIGHTLY DECREASED
[2019-03-26] MEDS: DIGOXIN 250MCG TABLET PO SCH (21:36)
== END 2019-03-26 22:58 | DRG 207 ==
LOC: ER 11:24 → 7WST 12:48 → EDBEDREQ 12:52 → ENRESERV 19:27 → 7WST 22:10 → 5EST 03-16 20:49 → MICUSO 03-17 06:04 → 3WST 03-24 17:38
PROVIDERS: ADMIT Family Medicine Adult Medicine; ATTEND Family Medicine Adult Medicine
PROC: 5A1955Z Respiratory Ventilation, Greater than 96 Consecutive Hours (ICD-10-PCS; principal; 2019-03-14)
PROC: 0BH17EZ Insertion of Endotracheal Airway into Trachea, Via Natural or Artificial Opening (ICD-10-PCS; 2019-03-14)
PROC: 02HV33Z Insertion of Infusion Device into Superior Vena Cava, Percutaneous Approach (ICD-10-PCS; 2019-03-17)
PROC: B548ZZA Ultrasonography of Superior Vena Cava, Guidance (ICD-10-PCS; 2019-03-17)
PROC: 0BH17EZ Insertion of Endotracheal Airway into Trachea, Via Natural or Artificial Opening (ICD-10-PCS; 2019-03-22)
DX: J96.21 Acute and chronic respiratory failure with hypoxia (principal); R57.0 Cardiogenic shock; G82.50 Quadriplegia, unspecified; G92 Toxic encephalopathy; J18.9 Pneumonia, unspecified organism; K29.71 Gastritis, unspecified, with bleeding; I50.43 Acute on chronic combined systolic (congestive) and diastolic (congestive) heart failure; J44.1 Chronic obstructive pulmonary disease with (acute) exacerbation; I42.9 Cardiomyopathy, unspecified; N17.9 Acute kidney failure, unspecified; E87.2 Acidosis; I47.2 Ventricular tachycardia; J44.0 Chronic obstructive pulmonary disease with (acute) lower respiratory infection; K56.7 Ileus, unspecified; D68.9 Coagulation defect, unspecified; E87.6 Hypokalemia; R74.0 Nonspecific elevation of levels of transaminase and lactic acid dehydrogenase [LDH]; I11.0 Hypertensive heart disease with heart failure; F17.210 Nicotine dependence, cigarettes, uncomplicated; D64.9 Anemia, unspecified; D69.6 Thrombocytopenia, unspecified; F10.20 Alcohol dependence, uncomplicated; I27.20 Pulmonary hypertension, unspecified; I48.91 Unspecified atrial fibrillation; I49.3 Ventricular premature depolarization; N27.0 Small kidney, unilateral; R26.9 Unspecified abnormalities of gait and mobility; Z60.2 Problems related to living alone; K70.31 Alcoholic cirrhosis of liver with ascites; N28.1 Cyst of kidney, acquired; R13.10 Dysphagia, unspecified; S80.212A Abrasion, left knee, initial encounter; X58.XXXA Exposure to other specified factors, initial encounter; R47.02 Dysphasia; Z86.73 Personal history of transient ischemic attack (TIA), and cerebral infarction without residual deficits; Z99.81 Dependence on supplemental oxygen; Z95.810 Presence of automatic (implantable) cardiac defibrillator; Y93.89 Activity, other specified; Y92.89 Other specified places as the place of occurrence of the external cause; Y99.8 Other external cause status; Z71.6 Tobacco abuse counseling; Z78.1 Physical restraint status
CPT/HCPCS: 36415; 36600; 71045; 74018; 76700; 76937; 80048; 80053; 80061; 80076; 80202; 80305; 81003; 82040; 82140; 82375; 82805; 82962; 83605; 83735; 83880; 84100; 84132; 84145; 84443; 84478; 84484; 85025; 85027; 86705; 86709; 86803; 87340; 92610; 93005; 93306; 93970; 94003; 94640; 96365; 96375; 97161; 97166; 97530; 99291; A6261; C1725; C1769; C9113; J0330; J1250; J1650; J1940; J2060; J2250; J2270; J2370; J2405; J2543; J2704; J2765; J2920; J2930; J3010; J3370; J3475; J3480; J3490; J7060; J7070; J7512; J7608; J7611; J7620; J7626; A4315

== ENCOUNTER 2019-06-28 15:29 | Inpatient (IN) | payer MEDICARE, OTHER ==
[~2019-06-28] VITALS: Ht 172.7 cm; Wt 76.7 kg
[2019-06-28 16:51] LABS: HEMATOCRIT. 28.8 % (42.0-52.0); HEMOGLOBIN. 9.4 g/dL (14.0-18.0); MEAN CORPUSCULAR HEMOGLOBIN 27.5 pg (28.0-32.0); MEAN CORPUSCULAR VOLUME 84.8 fL (80.0-94.0); MEAN PLATELET VOLUME 7.6 fl (7.4-10.4); PLATELET 263 x1000/uL (130-400)
[2019-06-28 16:58] LABS: CHLORIDE 87 mEq/L (98-107)
[2019-06-28 16:59] LABS: INR 1.2; PROTHROMBIN TIME 13.4 sec (9.6-11.0)
[2019-06-28 17:07] LABS: CREATINE KINASE 162 IU/L (39-308)
[2019-06-28 17:10] LABS: PLATELET ESTIMATE NORMAL
[2019-06-28] MEDS ORDERED: LEVOFLOXACIN 500MG PREMIX 100 ML IV ONE (17:15)
[2019-06-28] MEDS ORDERED: FUROSEMIDE 20MG/2ML VIAL IVP ONE (17:30)
[2019-06-28 19:01] LABS: CLARITY URINE CLEAR (CLEAR); COLOR URINE YELLOW (YELLOW); KETONES URINE NEGATIVE (NEGATIVE); LEUKOCYTE ESTERASE URINE TRACE (NEGATIVE); NITRITE URINE NEGATIVE (NEGATIVE); OCCULT BLOOD URINE NEGATIVE (NEGATIVE); PH URINE 6.5 (4.5-8.0); PROTEIN URINE NEGATIVE (NEGATIVE); SPECIFIC GRAVITY URINE 1.009 (1.005-1.030)
[2019-06-28 20:24] LABS: BG BASE EXCESS -5.3 mmol/L (-2.0-2.0); BG CARBOXYHEMOGLOBIN 0.3 % (0.5-1.5); BG DEOXYHEMOGLOBIN 1.3 % (0.0-5.0); BG FRACTION INSPIRED OXYGEN 40; BG HCO3 ACT 16.1 mmol/L (22.0-26.0); BG METHEMOGLOBIN 0.1 % (0.0-1.5); BG OXYGEN SATURATION 98.7 % (92.0-98.5); BG OXYHEMOGLOBIN 98.3 % (94.0-97.0); BG PCO2 19.5 mmHg (35.0-45.0); BG PH 7.534 (7.350-7.450); BG PO2 129.3 mmHg (75.0-100.0); BG SAMPLE SITE RIGHT RADIAL; BG TIDAL VOLUME(mL) 500 mL; BG TOTAL HEMOGLOBIN 8.5 g/dL (12.0-18.0); BG VENT MODE VENT - A/C; BG VENT RATE 16 set
[2019-06-29] VITALS (12 sets, daily range): BP systolic 100–156; BP diastolic 49–92
[2019-06-29] MEDS ORDERED: ACETAMINOPHEN 650MG/20.3ML UDC PO PRN (03:45)
[2019-06-29] MEDS ORDERED: LACT10SO6 GT (04:24)
[2019-06-29] MEDS ORDERED: AMIN30LI2 GT (04:24)
[2019-06-29] MEDS ORDERED: MIDO10TA MT (04:24)
[2019-06-29] MEDS ORDERED: DILT30TA3 GT (04:24)
[2019-06-29] MEDS ORDERED: MAGN400C GT (04:24)
[2019-06-29] MEDS ORDERED: HALO5TAB PO (04:24)
[2019-06-29] MEDS ORDERED: ONDA4TAB5 GT (04:24)
[2019-06-29] MEDS ORDERED: BISA10SU62 RC (04:24)
[2019-06-29] MEDS ORDERED: RISP0.5T19 GT (04:24)
[2019-06-29] MEDS ORDERED: METO-293 GT (04:24)
[2019-06-29] MEDS ORDERED: MULT-230 GT (04:24)
[2019-06-29] MEDS ORDERED: CRAN3875 GT (04:24)
[2019-06-29] MEDS ORDERED: RIFA550T GT (04:24)
[2019-06-29] MEDS ORDERED: NA P230E RC (04:24)
[2019-06-29] MEDS ORDERED: PROT40 GT (04:24)
[2019-06-29] MEDS ORDERED: MOM GT (04:24)
[2019-06-29 08:40] LABS: HEMATOCRIT. 25.8 % (42.0-52.0); HEMOGLOBIN. 8.6 g/dL (14.0-18.0); MEAN CORPUSCULAR HEMOGLOBIN 27.8 pg (28.0-32.0); MEAN CORPUSCULAR VOLUME 83.2 fL (80.0-94.0); MEAN PLATELET VOLUME 7.3 fl (7.4-10.4); PLATELET 258 x1000/uL (130-400); RED BLOOD CELL COUNT 3.11 mill/uL (4.7-6.1); RED CELL DISTRIBUTION WIDTH 18.8 % (11.6-14.6)
[2019-06-29 08:41] LABS: CHLORIDE 89 mEq/L (98-107)
[2019-06-29] MEDS ORDERED: IPRATROPIUM/ALBUTEROL 0.5-3(2.5)MG/3ML NEB HHN PRN (08:45)
[2019-06-29 08:47] LABS: PHOSPHORUS 3.8 mg/dL (2.5-4.9)
[2019-06-29] MEDS ORDERED: LEVOFLOXACIN 500MG PREMIX 100 ML IV SCH ×2 (09:00→16:00)
[2019-06-29] MEDS ORDERED: FUROSEMIDE 20MG/2ML VIAL IVP SCH (09:00)
[2019-06-29] MEDS: HALOPERIDOL 5MG TABLET PO PRN ×2 (09:56→16:47)
[2019-06-29] MEDS: ENOXAPARIN 40MG/0.4ML SYR SUBCUT SCH (09:56)
[2019-06-29] MEDS ORDERED: FUROSEMIDE 20MG/2ML VIAL IVP STA (10:43)
[2019-06-29] MEDS ORDERED: DEXT 5%/0.45% NACL 1000ML 1,000 ML IV SCH (11:00)
[2019-06-29 11:11] LABS: BG BASE EXCESS -1.9 mmol/L (-2.0-2.0); BG CARBOXYHEMOGLOBIN 0.3 % (0.5-1.5); BG DEOXYHEMOGLOBIN 6.5 % (0.0-5.0); BG FRACTION INSPIRED OXYGEN 32; BG HCO3 ACT 21.2 mmol/L (22.0-26.0); BG OXYGEN SATURATION 93.5 % (92.0-98.5); BG OXYHEMOGLOBIN 93.2 % (94.0-97.0); BG PCO2 30.3 mmHg (35.0-45.0); BG PH 7.463 (7.350-7.450); BG PO2 66.8 mmHg (75.0-100.0); BG SAMPLE SITE RIGHT RADIAL; BG TOTAL HEMOGLOBIN 9.8 g/dL (12.0-18.0); BG VENT MODE NASAL CANNULA
[2019-06-29] MEDS ORDERED: LIDOCAINE HCL/PF 1% 2ML VIAL ONE (11:53)
[2019-06-29] MEDS: CARVEDILOL 3.125 MG TABLET PO SCH ×2 (12:01→22:41)
[2019-06-29] MEDS ORDERED: DEXT 10% WATER 1,000 ML IV SCH (12:30)
[2019-06-29] MEDS: BLOOD SUGAR DIAGNOSTIC STRIP TEST SCH ×3 (12:30→21:27)
[2019-06-29] MEDS ORDERED: DEXTROSE 50% WATER 50ML SYRINGE IV PRN (12:30)
[2019-06-29 13:09] LABS: PLATELET ESTIMATE NORMAL
[2019-06-29] MEDS: DEXTROSE 50% WATER 50ML SYRINGE IV NR ×2 (13:39→17:28)
[2019-06-29] MEDS: IPRATROPIUM/ALBUTEROL 0.5-3(2.5)MG/3ML NEB HHN SCH (14:33)
[2019-06-29] MEDS ORDERED: FUROSEMIDE 40MG/4ML VIAL IVP SCH (21:00)
[2019-06-29] MEDS ORDERED: MAGNESIUM HYDROXIDE 400MG/5ML 30ML UDC GT PRN (21:15)
[2019-06-29] MEDS ORDERED: BISACODYL 10MG SUPP RC PRN (21:15)
[2019-06-29] MEDS ORDERED: MAGNESIUM OXIDE 400MG TABLET GT SCH (21:30)
[2019-06-29] MEDS: FUROSEMIDE 20MG/2ML VIAL IVP SCH (22:40)
[2019-06-29] MEDS: DOCUSATE SODIUM SUGAR FREE 100MG/10ML UDC GT SCH (22:41)
[2019-06-29] MEDS: RISPERIDONE 0.5MG TABLET GT SCH (22:41)
[2019-06-29] MEDS: PANTOPRAZOLE 40MG DR TABLET PO SCH (22:42)
[2019-06-29] MEDS: SENNOSIDES 8.6MG TABLET PO SCH (22:42)
[2019-06-30] VITALS (12 sets, daily range): BP systolic 93–138; BP diastolic 63–93
[2019-06-30] MEDS: IPRATROPIUM/ALBUTEROL 0.5-3(2.5)MG/3ML NEB HHN SCH ×4 (00:05→16:15)
[2019-06-30] MEDS: HALOPERIDOL 5MG TABLET PO PRN ×2 (06:15→17:41)
[2019-06-30] MEDS: PANTOPRAZOLE 40MG DR TABLET PO SCH ×2 (06:15→22:01)
[2019-06-30 06:35] LABS: HEMATOCRIT. 27.8 % (42.0-52.0); HEMOGLOBIN. 9.1 g/dL (14.0-18.0); MEAN CORPUSCULAR HEMOGLOBIN 27.3 pg (28.0-32.0); MEAN CORPUSCULAR VOLUME 83.7 fL (80.0-94.0); MEAN PLATELET VOLUME 7.5 fl (7.4-10.4); PLATELET 308 x1000/uL (130-400); RED BLOOD CELL COUNT 3.33 mill/uL (4.7-6.1); RED CELL DISTRIBUTION WIDTH 18.5 % (11.6-14.6)
[2019-06-30 07:40] LABS: CHLORIDE 90 mEq/L (98-107)
[2019-06-30] MEDS: BLOOD SUGAR DIAGNOSTIC STRIP TEST SCH ×4 (07:46→21:34)
[2019-06-30] MEDS: SENNOSIDES 8.6MG TABLET PO SCH (09:00)
[2019-06-30] MEDS: DOCUSATE SODIUM SUGAR FREE 100MG/10ML UDC GT SCH (09:00)
[2019-06-30] MEDS: RISPERIDONE 0.5MG TABLET GT SCH ×2 (09:34→22:01)
[2019-06-30] MEDS: ENOXAPARIN 40MG/0.4ML SYR SUBCUT SCH (09:34)
[2019-06-30] MEDS: MULTIVITAMINS,THER W-MINERALS TABLET GT SCH (09:34)
[2019-06-30] MEDS: CARVEDILOL 3.125 MG TABLET PO SCH ×2 (09:34→22:01)
[2019-06-30] MEDS: FUROSEMIDE 20MG/2ML VIAL IVP SCH (09:35)
[2019-06-30 09:58] LABS: BG CARBOXYHEMOGLOBIN 0.7 % (0.5-1.5); BG DEOXYHEMOGLOBIN 1.6 % (0.0-5.0); BG FRACTION INSPIRED OXYGEN 35; BG HCO3 ACT 26.8 mmol/L (22.0-26.0); BG METHEMOGLOBIN 0.3 % (0.0-1.5); BG OXYGEN SATURATION 98.4 % (92.0-98.5); BG OXYHEMOGLOBIN 97.4 % (94.0-97.0); BG PH 7.527 (7.350-7.450); BG PO2 120.1 mmHg (75.0-100.0); BG SAMPLE SITE RIGHT RADIAL; BG TIDAL VOLUME(mL) 500 mL; BG TOTAL HEMOGLOBIN 9.2 g/dL (12.0-18.0); BG VENT MODE VENT - A/C; BG VENT RATE 12 set
[2019-06-30] MEDS ORDERED: POTASSIUM CHLORIDE 20MEQ/PACKET PO NR ×2 (12:30→15:30)
[2019-06-30 13:57] LABS: NUCLEATED RED BLOOD CELLS 1 /100 WBC; PLATELET ESTIMATE NORMAL
[2019-06-30] MEDS: CEFEPIME 1,000 MG in DEXTROSE 5% WATER 50 ML IV SCH (16:15)
[2019-06-30 18:51] LABS: BG BASE EXCESS -3.2 mmol/L (-2.0-2.0); BG CARBOXYHEMOGLOBIN 0.2 % (0.5-1.5); BG DEOXYHEMOGLOBIN 11.9 % (0.0-5.0); BG FRACTION INSPIRED OXYGEN 35; BG HCO3 ACT 23.9 mmol/L (22.0-26.0); BG METHEMOGLOBIN 0.1 % (0.0-1.5); BG OXYGEN SATURATION 88.1 % (92.0-98.5); BG OXYHEMOGLOBIN 87.8 % (94.0-97.0); BG PCO2 52.6 mmHg (35.0-45.0); BG PH 7.276 (7.350-7.450); BG PO2 69.2 mmHg (75.0-100.0); BG SAMPLE SITE RIGHT RADIAL; BG TIDAL VOLUME(mL) 500 mL; BG TOTAL HEMOGLOBIN 10.9 g/dL (12.0-18.0); BG VENT MODE VENT - A/C; BG VENT RATE 12 set
[2019-06-30] MEDS ORDERED: RISPERIDONE 0.5MG TABLET PO NR (18:51)
[2019-06-30] MEDS: ENOXAPARIN 80MG/0.8ML SYR SUBCUT SCH (22:02)
[2019-07-01] VITALS (12 sets, daily range): BP systolic 80–119; BP diastolic 52–74
[2019-07-01] MEDS: CEFEPIME 1,000 MG in DEXTROSE 5% WATER 50 ML IV SCH (03:14)
[2019-07-01] MEDS: BLOOD SUGAR DIAGNOSTIC STRIP TEST SCH ×4 (07:30→20:54)
[2019-07-01] MEDS: IPRATROPIUM/ALBUTEROL 0.5-3(2.5)MG/3ML NEB HHN SCH ×2 (08:51→16:01)
[2019-07-01] MEDS: CARVEDILOL 3.125 MG TABLET PO SCH ×2 (09:00→20:54)
[2019-07-01] MEDS: MULTIVITAMINS,THER W-MINERALS TABLET GT SCH (09:55)
[2019-07-01] MEDS: SENNOSIDES 8.6MG TABLET PO SCH (09:55)
[2019-07-01] MEDS: DOCUSATE SODIUM SUGAR FREE 100MG/10ML UDC GT SCH (09:55)
[2019-07-01] MEDS: PANTOPRAZOLE 40MG DR TABLET PO SCH ×2 (09:55→20:54)
[2019-07-01] MEDS: RISPERIDONE 0.5MG TABLET GT SCH ×2 (09:55→21:02)
[2019-07-01] MEDS: ENOXAPARIN 80MG/0.8ML SYR SUBCUT SCH ×2 (09:56→20:55)
[2019-07-01] MEDS: MIDODRINE HCL 5MG TABLET PO SCH ×3 (11:20→18:08)
[2019-07-01 12:28] LABS: HEMATOCRIT 25.3 % (42.0-52.0); HEMOGLOBIN 8.2 g/dL (14.0-18.0); MEAN CORPUSCULAR HEMOGLOBIN 27.1 pg (28.0-32.0); PLATELET 242 x1000/uL (130-400); RED BLOOD CELL COUNT 3.01 mill/uL (4.7-6.1); RED CELL DISTRIBUTION WIDTH 18.9 % (11.6-14.6)
[2019-07-01 12:37] LABS: CHLORIDE 92 mEq/L (98-107)
[2019-07-01] MEDS: LORAZEPAM 2MG/ML CPJ IV PRN (14:33)
[2019-07-01] MEDS: FUROSEMIDE 40MG/4ML VIAL IVP SCH (14:33)
[2019-07-01] MEDS ORDERED: GENTAMICIN SULFATE 160 MG in SODIUM CHLORIDE 0.9% 100 ML IV SCH (15:00)
[2019-07-02] VITALS (11 sets, daily range): BP systolic 90–123; BP diastolic 48–82
[2019-07-02] MEDS: IPRATROPIUM/ALBUTEROL 0.5-3(2.5)MG/3ML NEB HHN SCH ×3 (00:08→14:32)
[2019-07-02 06:50] LABS: CHLORIDE 91 mEq/L (98-107)
[2019-07-02] MEDS: BLOOD SUGAR DIAGNOSTIC STRIP TEST SCH ×4 (08:14→23:32)
[2019-07-02] MEDS: FUROSEMIDE 40MG/4ML VIAL IVP SCH (08:38)
[2019-07-02] MEDS: PANTOPRAZOLE 40MG DR TABLET PO SCH (08:39)
[2019-07-02] MEDS: RISPERIDONE 0.5MG TABLET GT SCH ×2 (08:39→20:35)
[2019-07-02] MEDS: MIDODRINE HCL 5MG TABLET PO SCH ×3 (08:39→18:25)
[2019-07-02] MEDS: DOCUSATE SODIUM SUGAR FREE 100MG/10ML UDC GT SCH (08:39)
[2019-07-02] MEDS: ENOXAPARIN 80MG/0.8ML SYR SUBCUT SCH (08:39)
[2019-07-02] MEDS: MULTIVITAMINS,THER W-MINERALS TABLET GT SCH (08:39)
[2019-07-02] MEDS: CARVEDILOL 3.125 MG TABLET PO SCH ×2 (08:39→20:36)
[2019-07-02] MEDS: SENNOSIDES 8.6MG TABLET PO SCH (08:40)
[2019-07-02] MEDS: TOBRAMYCIN SULFATE 40MG/ML 2ML INH SCH ×2 (09:02→20:59)
[2019-07-02] MEDS ORDERED: DOCUSATE SODIUM SUGAR FREE 100MG/10ML UDC GT PRN (13:00)
[2019-07-02] MEDS: LORAZEPAM 2MG/ML CPJ IV PRN (18:24)
[2019-07-02] MEDS: RIVAROXABAN 20 MG TABLET PEG SCH (19:44)
[2019-07-02] MEDS: LANSOPRAZOLE 30MG DR CAPSULE GT SCH (20:35)
[2019-07-03] VITALS (13 sets, daily range): BP systolic 94–122; BP diastolic 49–79
[2019-07-03] MEDS: IPRATROPIUM/ALBUTEROL 0.5-3(2.5)MG/3ML NEB HHN SCH ×4 (00:48→20:12)
[2019-07-03] MEDS: BLOOD SUGAR DIAGNOSTIC STRIP TEST SCH ×3 (06:10→17:30)
[2019-07-03] MEDS: TOBRAMYCIN SULFATE 40MG/ML 2ML INH SCH (08:26)
[2019-07-03] MEDS: RISPERIDONE 0.5MG TABLET GT SCH ×2 (08:51→21:32)
[2019-07-03] MEDS: FUROSEMIDE 40MG/4ML VIAL IVP SCH (08:51)
[2019-07-03] MEDS: MULTIVITAMINS,THER W-MINERALS TABLET GT SCH (08:51)
[2019-07-03] MEDS: SENNOSIDES 8.6MG TABLET PO SCH (08:51)
[2019-07-03] MEDS: MIDODRINE HCL 5MG TABLET PO SCH ×3 (08:52→16:55)
[2019-07-03] MEDS: LANSOPRAZOLE 30MG DR CAPSULE GT SCH ×2 (08:52→21:32)
[2019-07-03] MEDS: CARVEDILOL 3.125 MG TABLET PO SCH ×2 (08:52→21:00)
[2019-07-03] MEDS: RIVAROXABAN 20 MG TABLET PEG SCH (16:54)
[2019-07-03] MEDS: LORAZEPAM 2MG/ML CPJ IV PRN (18:12)
[2019-07-04] VITALS (12 sets, daily range): BP systolic 100–148; BP diastolic 42–92
[2019-07-04] MEDS: IPRATROPIUM/ALBUTEROL 0.5-3(2.5)MG/3ML NEB HHN SCH ×3 (00:02→17:38)
[2019-07-04] MEDS: TOBRAMYCIN SULFATE 40MG/ML 2ML INH SCH ×3 (00:02→20:25)
[2019-07-04] MEDS: BLOOD SUGAR DIAGNOSTIC STRIP TEST SCH ×4 (03:24→17:39)
[2019-07-04 07:49] LABS: HEMATOCRIT. 26.7 % (42.0-52.0); HEMOGLOBIN. 8.6 g/dL (14.0-18.0); MEAN CORPUSCULAR HEMOGLOBIN 26.9 pg (28.0-32.0); MEAN CORPUSCULAR VOLUME 83.6 fL (80.0-94.0); MEAN PLATELET VOLUME 7.4 fl (7.4-10.4); PLATELET 271 x1000/uL (130-400); RED CELL DISTRIBUTION WIDTH 18.9 % (11.6-14.6)
[2019-07-04 07:56] LABS: CHLORIDE 93 mEq/L (98-107)
[2019-07-04] MEDS: SENNOSIDES 8.6MG TABLET PO SCH (08:57)
[2019-07-04] MEDS: RISPERIDONE 0.5MG TABLET GT SCH ×2 (08:57→21:20)
[2019-07-04] MEDS: FUROSEMIDE 40MG/4ML VIAL IVP SCH (08:57)
[2019-07-04] MEDS: LANSOPRAZOLE 30MG DR CAPSULE GT SCH ×2 (08:57→21:20)
[2019-07-04] MEDS: MULTIVITAMINS,THER W-MINERALS TABLET GT SCH (08:58)
[2019-07-04] MEDS: MIDODRINE HCL 5MG TABLET PO SCH ×3 (08:58→17:25)
[2019-07-04] MEDS: CARVEDILOL 3.125 MG TABLET PO SCH ×2 (08:58→21:00)
[2019-07-04] MEDS: RIVAROXABAN 20 MG TABLET PEG SCH (17:24)
[2019-07-04] MEDS: LORAZEPAM 2MG/ML CPJ IV PRN (19:33)
[2019-07-05] VITALS (12 sets, daily range): BP systolic 93–134; BP diastolic 44–71
[2019-07-05] MEDS: BLOOD SUGAR DIAGNOSTIC STRIP TEST SCH ×4 (00:20→17:33)
[2019-07-05] MEDS: IPRATROPIUM/ALBUTEROL 0.5-3(2.5)MG/3ML NEB HHN SCH ×3 (00:33→16:35)
[2019-07-05] MEDS: ONDANSETRON HCL 4MG/2ML INJ IV PRN ×2 (04:02→20:47)
[2019-07-05 07:51] LABS: HEMATOCRIT. 24.2 % (42.0-52.0); HEMOGLOBIN. 7.9 g/dL (14.0-18.0); MEAN CORPUSCULAR HEMOGLOBIN 27.1 pg (28.0-32.0); MEAN CORPUSCULAR VOLUME 83.1 fL (80.0-94.0); MEAN PLATELET VOLUME 7.3 fl (7.4-10.4); PLATELET 253 x1000/uL (130-400); RED BLOOD CELL COUNT 2.91 mill/uL (4.7-6.1)
[2019-07-05 08:10] LABS: CHLORIDE 92 mEq/L (98-107)
[2019-07-05 08:28] LABS: PLATELET ESTIMATE NORMAL
[2019-07-05] MEDS: FUROSEMIDE 40MG/4ML VIAL IVP SCH (09:12)
[2019-07-05] MEDS: RISPERIDONE 0.5MG TABLET GT SCH ×2 (09:12→20:46)
[2019-07-05] MEDS: SENNOSIDES 8.6MG TABLET PO SCH (09:12)
[2019-07-05] MEDS: MIDODRINE HCL 5MG TABLET PO SCH ×3 (09:13→17:33)
[2019-07-05] MEDS: MULTIVITAMINS,THER W-MINERALS TABLET GT SCH (09:13)
[2019-07-05] MEDS: LANSOPRAZOLE 30MG DR CAPSULE GT SCH ×2 (09:13→20:46)
[2019-07-05] MEDS: CARVEDILOL 3.125 MG TABLET PO SCH ×2 (09:13→20:46)
[2019-07-05 10:52] LABS: PLATELET ESTIMATE NORMAL
[2019-07-05] MEDS ORDERED: MAGNESIUM HYDROXIDE 400MG/5ML 30ML UDC PO PRN (13:45)
[2019-07-05] MEDS ORDERED: POLYETHYLENE GLYCOL 3350 (17GM) 1 DOSE PACK PO PRN (13:45)
[2019-07-05] MEDS: TOBRAMYCIN SULFATE 40MG/ML 2ML INH SCH (20:21)
[2019-07-05] MEDS: MEROPENEM 500 MG in SODIUM CHLORIDE 0.9% 50 ML IV SCH (22:00)
[2019-07-06] VITALS (12 sets, daily range): BP systolic 94–125; BP diastolic 51–80
[2019-07-06] MEDS: BLOOD SUGAR DIAGNOSTIC STRIP TEST SCH ×4 (00:34→17:46)
[2019-07-06] MEDS: IPRATROPIUM/ALBUTEROL 0.5-3(2.5)MG/3ML NEB HHN SCH ×4 (00:38→21:14)
[2019-07-06] MEDS: MEROPENEM 500 MG in SODIUM CHLORIDE 0.9% 50 ML IV SCH ×3 (05:34→22:10)
[2019-07-06] MEDS: TOBRAMYCIN SULFATE 40MG/ML 2ML INH SCH ×2 (08:20→21:14)
[2019-07-06] MEDS: LANSOPRAZOLE 30MG DR CAPSULE GT SCH ×2 (09:07→22:10)
[2019-07-06] MEDS: MULTIVITAMINS,THER W-MINERALS TABLET GT SCH (09:07)
[2019-07-06] MEDS: FUROSEMIDE 40MG/4ML VIAL IVP SCH (09:07)
[2019-07-06] MEDS: SENNOSIDES 8.6MG TABLET PO SCH (09:07)
[2019-07-06] MEDS: RISPERIDONE 0.5MG TABLET GT SCH ×2 (09:07→22:11)
[2019-07-06] MEDS: CARVEDILOL 3.125 MG TABLET PO SCH ×2 (09:08→22:11)
[2019-07-06] MEDS: MIDODRINE HCL 5MG TABLET PO SCH ×3 (09:12→17:47)
[2019-07-06 09:57] LABS: BG BASE EXCESS 5.7 mmol/L (-2.0-2.0); BG CARBOXYHEMOGLOBIN 0.2 % (0.5-1.5); BG DEOXYHEMOGLOBIN 1.7 % (0.0-5.0); BG FRACTION INSPIRED OXYGEN 35; BG HCO3 ACT 29.1 mmol/L (22.0-26.0); BG METHEMOGLOBIN 0.2 % (0.0-1.5); BG OXYGEN SATURATION 98.3 % (92.0-98.5); BG OXYHEMOGLOBIN 97.9 % (94.0-97.0); BG PCO2 37.2 mmHg (35.0-45.0); BG PH 7.511 (7.350-7.450); BG PO2 121.7 mmHg (75.0-100.0); BG SAMPLE SITE RIGHT RADIAL; BG TIDAL VOLUME(mL) 500 mL; BG TOTAL HEMOGLOBIN 8.3 g/dL (12.0-18.0); BG VENT MODE VENT - A/C; BG VENT RATE 16 set
[2019-07-06 17:07] LABS: HEMATOCRIT. 23.2 % (42.0-52.0); HEMOGLOBIN. 7.6 g/dL (14.0-18.0); MEAN CORPUSCULAR HEMOGLOBIN 26.9 pg (28.0-32.0); MEAN CORPUSCULAR VOLUME 81.6 fL (80.0-94.0); MEAN PLATELET VOLUME 8.1 fl (7.4-10.4); PLATELET 193 x1000/uL (130-400); RED BLOOD CELL COUNT 2.85 mill/uL (4.7-6.1); RED CELL DISTRIBUTION WIDTH 18.8 % (11.6-14.6)
[2019-07-06 17:10] LABS: CHLORIDE 96 mEq/L (98-107)
[2019-07-06] MEDS: HALOPERIDOL 5MG TABLET PO PRN (17:47)
[2019-07-06 18:11] LABS: PLATELET ESTIMATE NORMAL
[2019-07-07] VITALS (13 sets, daily range): BP systolic 62–145; BP diastolic 27–78
[2019-07-07] MEDS: MEROPENEM 500 MG in SODIUM CHLORIDE 0.9% 50 ML IV SCH ×3 (05:48→22:00)
[2019-07-07] MEDS: IPRATROPIUM/ALBUTEROL 0.5-3(2.5)MG/3ML NEB HHN SCH ×2 (08:18→16:06)
[2019-07-07] MEDS: RISPERIDONE 0.5MG TABLET GT SCH ×2 (08:44→20:11)
[2019-07-07] MEDS: MIDODRINE HCL 5MG TABLET PO SCH ×3 (08:44→16:44)
[2019-07-07] MEDS: LANSOPRAZOLE 30MG DR CAPSULE GT SCH ×2 (08:44→20:07)
[2019-07-07] MEDS: HALOPERIDOL 5MG TABLET PO PRN ×3 (08:44→23:34)
[2019-07-07] MEDS: SENNOSIDES 8.6MG TABLET PO SCH (08:44)
[2019-07-07] MEDS: CARVEDILOL 3.125 MG TABLET PO SCH ×2 (08:44→20:06)
[2019-07-07] MEDS: MULTIVITAMINS,THER W-MINERALS TABLET GT SCH (08:44)
[2019-07-07] MEDS: TOBRAMYCIN SULFATE 40MG/ML 2ML INH SCH (10:01)
[2019-07-07] MEDS: BLOOD SUGAR DIAGNOSTIC STRIP TEST SCH ×4 (12:00→23:26)
[2019-07-07] MEDS ORDERED: MINERAL OIL ENEMA 133ML PR NR (13:30)
[2019-07-07] MEDS ORDERED: DOCUSATE SODIUM SUGAR FREE 100MG/10ML UDC GT SCH (13:30)
[2019-07-07] MEDS ORDERED: MAGNESIUM CITRATE 300ML SOLUTION PO NR (13:30)
[2019-07-07] MEDS: MAGNESIUM HYDROXIDE 400MG/5ML 30ML UDC GT SCH ×2 (14:30→16:44)
[2019-07-07 16:00] LABS: HEMATOCRIT. 23.5 % (42.0-52.0); HEMOGLOBIN. 7.5 g/dL (14.0-18.0); MEAN CORPUSCULAR HEMOGLOBIN 26.8 pg (28.0-32.0); MEAN CORPUSCULAR VOLUME 84.3 fL (80.0-94.0); MEAN PLATELET VOLUME 7.8 fl (7.4-10.4); PLATELET 258 x1000/uL (130-400); RED BLOOD CELL COUNT 2.79 mill/uL (4.7-6.1); RED CELL DISTRIBUTION WIDTH 18.8 % (11.6-14.6)
[2019-07-07 16:03] LABS: CHLORIDE 94 mEq/L (98-107)
[2019-07-07 16:32] LABS: PLATELET ESTIMATE NORMAL
[2019-07-07] MEDS: DOCUSATE SODIUM SUGAR FREE 100MG/10ML UDC GT SCH (16:41)
[2019-07-07 18:58] LABS: TOTAL IRON BINDING CAPACITY 405 ug/dL (250-450)
[2019-07-07 19:12] LABS: FERRITIN 171 ng/mL (22-322)
[2019-07-07 19:25] LABS: FOLIC ACID (FOLATE) SERUM > 20.00 ng/mL (>5.38); VITAMIN B12 SERUM 880 pg/mL (211-911)
[2019-07-07] MEDS ORDERED: NA PHOS,M-B/NA PHOS,DI-BA ENEMA 118ML PR SCH (20:00)
[2019-07-07] MEDS ORDERED: SORBITOL 70% SOLN 30ML GT SCH (21:00)
[2019-07-07] MEDS: ONDANSETRON HCL 4MG/2ML INJ IV PRN (23:35)
[2019-07-08] VITALS (16 sets, daily range): BP systolic 104–123; BP diastolic 66–77
[2019-07-08] MEDS: IPRATROPIUM/ALBUTEROL 0.5-3(2.5)MG/3ML NEB HHN SCH ×5 (00:18→23:36)
[2019-07-08] MEDS: BLOOD SUGAR DIAGNOSTIC STRIP TEST SCH ×3 (05:37→18:25)
[2019-07-08] MEDS ORDERED: SORBITOL 70% SOLN 30ML GT SCH (06:00)
[2019-07-08] MEDS ORDERED: NA PHOS,M-B/NA PHOS,DI-BA ENEMA 118ML PR SCH (06:00)
[2019-07-08] MEDS: MEROPENEM 500 MG in SODIUM CHLORIDE 0.9% 50 ML IV SCH ×3 (06:08→21:13)
[2019-07-08] MEDS ORDERED: HALOPERIDOL LACTATE 5MG/ML VIAL IM PRN ×2 (06:15→18:15)
[2019-07-08 06:25] LABS: MEAN CORPUSCULAR HEMOGLOBIN 26.6 pg (28.0-32.0); MEAN CORPUSCULAR VOLUME 85.2 fL (80.0-94.0); MEAN PLATELET VOLUME 7.9 fl (7.4-10.4); PLATELET 245 x1000/uL (130-400); RED BLOOD CELL COUNT 2.33 mill/uL (4.7-6.1)
[2019-07-08 06:30] LABS: CHLORIDE 97 mEq/L (98-107)
[2019-07-08 06:39] LABS: HEMATOCRIT. 19.9 % (42.0-52.0); HEMOGLOBIN. 6.2 g/dL (14.0-18.0)
[2019-07-08] MEDS ORDERED: RISPERIDONE 0.5MG TABLET PO SCH (09:00)
[2019-07-08] MEDS: CARVEDILOL 3.125 MG TABLET PO SCH ×2 (09:00→21:13)
[2019-07-08] MEDS: DOCUSATE SODIUM SUGAR FREE 100MG/10ML UDC GT SCH (09:00)
[2019-07-08] MEDS: MAGNESIUM HYDROXIDE 400MG/5ML 30ML UDC GT SCH ×2 (09:00→17:00)
[2019-07-08] MEDS: LANSOPRAZOLE 30MG DR CAPSULE GT SCH (09:37)
[2019-07-08] MEDS: MULTIVITAMINS,THER W-MINERALS TABLET GT SCH (09:37)
[2019-07-08] MEDS: MIDODRINE HCL 5MG TABLET PO SCH ×3 (09:38→18:24)
[2019-07-08] MEDS: SENNOSIDES 8.6MG TABLET PO SCH (09:45)
[2019-07-08] MEDS: HALOPERIDOL 5MG TABLET PO PRN (09:45)
[2019-07-08] MEDS ORDERED: LIDOCAINE HCL/PF 1% 2ML VIAL ONE (12:51)
[2019-07-08 13:51] LABS: PLATELET ESTIMATE NORMAL
[2019-07-08 15:57] LABS: BG BASE EXCESS 6.9 mmol/L (-2.0-2.0); BG CARBOXYHEMOGLOBIN 0.3 % (0.5-1.5); BG DEOXYHEMOGLOBIN 2.3 % (0.0-5.0); BG FRACTION INSPIRED OXYGEN 35; BG HCO3 ACT 30.4 mmol/L (22.0-26.0); BG METHEMOGLOBIN 0.2 % (0.0-1.5); BG OXYGEN SATURATION 97.7 % (92.0-98.5); BG OXYHEMOGLOBIN 97.2 % (94.0-97.0); BG PCO2 38.8 mmHg (35.0-45.0); BG PH 7.512 (7.350-7.450); BG PO2 108.5 mmHg (75.0-100.0); BG SAMPLE SITE RIGHT RADIAL; BG TIDAL VOLUME(mL) 500 mL; BG TOTAL HEMOGLOBIN 8.2 g/dL (12.0-18.0); BG VENT MODE VENT - A/C; BG VENT RATE 12 set
[2019-07-08] MEDS: RISPERIDONE 0.5MG TABLET PO SCH (18:24)
[2019-07-08 20:04] LABS: INR 1.4; PROTHROMBIN TIME 14.6 sec (9.6-11.0)
[2019-07-09] VITALS (12 sets, daily range): BP systolic 92–137; BP diastolic 27–87
[2019-07-09] MEDS: BLOOD SUGAR DIAGNOSTIC STRIP TEST SCH ×5 (00:45→23:55)
[2019-07-09] MEDS: MEROPENEM 500 MG in SODIUM CHLORIDE 0.9% 50 ML IV SCH ×3 (05:44→21:21)
[2019-07-09] MEDS: MAGNESIUM HYDROXIDE 400MG/5ML 30ML UDC GT SCH (09:00)
[2019-07-09] MEDS: SENNOSIDES 8.6MG TABLET PO SCH (09:00)
[2019-07-09] MEDS: DOCUSATE SODIUM SUGAR FREE 100MG/10ML UDC GT SCH (09:00)
[2019-07-09] MEDS: IPRATROPIUM/ALBUTEROL 0.5-3(2.5)MG/3ML NEB HHN SCH ×2 (09:22→15:51)
[2019-07-09] MEDS: RISPERIDONE 0.5MG TABLET PO SCH (09:57)
[2019-07-09] MEDS: MULTIVITAMINS,THER W-MINERALS TABLET GT SCH (09:57)
[2019-07-09] MEDS: CARVEDILOL 3.125 MG TABLET PO SCH ×2 (09:59→20:53)
[2019-07-09] MEDS: MIDODRINE HCL 5MG TABLET PO SCH ×3 (10:00→18:01)
[2019-07-09] MEDS ORDERED: GUAIFENESIN-DM 200MG-20MG/10ML UDC PO PRN (15:15)
[2019-07-09] MEDS ORDERED: MAGNESIUM HYDROXIDE 400MG/5ML 30ML UDC GT PRN (15:15)
[2019-07-09] MEDS ORDERED: RISPERIDONE 1MG TABLET PO SCH (15:15)
[2019-07-09] MEDS ORDERED: DOCUSATE SODIUM SUGAR FREE 100MG/10ML UDC GT PRN (15:15)
[2019-07-09] MEDS ORDERED: SENNOSIDES 8.6MG TABLET PO PRN (15:15)
[2019-07-09] MEDS ORDERED: BISACODYL 10MG SUPP RC PRN (15:15)
[2019-07-09 17:24] LABS: HEMATOCRIT. 27.2 % (42.0-52.0); HEMOGLOBIN. 8.8 g/dL (14.0-18.0); MEAN CORPUSCULAR HEMOGLOBIN 27.5 pg (28.0-32.0); MEAN CORPUSCULAR VOLUME 84.5 fL (80.0-94.0); MEAN PLATELET VOLUME 7.6 fl (7.4-10.4); PLATELET 257 x1000/uL (130-400); RED BLOOD CELL COUNT 3.22 mill/uL (4.7-6.1); RED CELL DISTRIBUTION WIDTH 17.5 % (11.6-14.6)
[2019-07-09] MEDS: RISPERIDONE 1MG TABLET PO SCH (18:00)
[2019-07-09 18:12] LABS: HEMATOCRIT. 26.7 % (42.0-52.0); HEMOGLOBIN. 8.7 g/dL (14.0-18.0); MEAN CORPUSCULAR HEMOGLOBIN 27.7 pg (28.0-32.0); MEAN CORPUSCULAR VOLUME 85.1 fL (80.0-94.0); MEAN PLATELET VOLUME 7.9 fl (7.4-10.4); PLATELET 256 x1000/uL (130-400); RED BLOOD CELL COUNT 3.14 mill/uL (4.7-6.1); RED CELL DISTRIBUTION WIDTH 17.8 % (11.6-14.6)
[2019-07-09 18:22] LABS: CHLORIDE 100 mEq/L (98-107)
[2019-07-09 18:48] LABS: HEPATITIS B SURFACE ANTIGEN NEGATIVE
[2019-07-09 19:18] LABS: HEPATITIS A AB IGM NEGATIVE (NEGATIVE)
[2019-07-09 20:43] LABS: PLATELET ESTIMATE NORMAL
[2019-07-10] VITALS (11 sets, daily range): BP systolic 105–139; BP diastolic 58–83
[2019-07-10] MEDS: IPRATROPIUM/ALBUTEROL 0.5-3(2.5)MG/3ML NEB HHN SCH ×3 (00:47→14:00)
[2019-07-10 06:45] LABS: NUCLEATED RED BLOOD CELLS 2 /100 WBC; PLATELET ESTIMATE NORMAL
[2019-07-10 07:01] LABS: CHLORIDE 102 mEq/L (98-107)
[2019-07-10] MEDS: MEROPENEM 500 MG in SODIUM CHLORIDE 0.9% 50 ML IV SCH ×2 (07:13→15:03)
[2019-07-10] MEDS: BLOOD SUGAR DIAGNOSTIC STRIP TEST SCH ×3 (07:13→18:17)
[2019-07-10] MEDS: MIDODRINE HCL 5MG TABLET PO SCH ×3 (09:05→18:16)
[2019-07-10] MEDS: MULTIVITAMINS,THER W-MINERALS TABLET GT SCH (09:06)
[2019-07-10] MEDS: CARVEDILOL 3.125 MG TABLET PO SCH (09:06)
[2019-07-10] MEDS: RISPERIDONE 1MG TABLET PO SCH ×2 (09:06→18:16)
[2019-07-10 10:58] LABS: HEMATOCRIT. 27.7 % (42.0-52.0); HEMOGLOBIN. 8.9 g/dL (14.0-18.0); MEAN CORPUSCULAR HEMOGLOBIN 27.6 pg (28.0-32.0); MEAN CORPUSCULAR VOLUME 85.5 fL (80.0-94.0); MEAN PLATELET VOLUME 7.7 fl (7.4-10.4); PLATELET 254 x1000/uL (130-400); RED BLOOD CELL COUNT 3.24 mill/uL (4.7-6.1); RED CELL DISTRIBUTION WIDTH 18.2 % (11.6-14.6)
[2019-07-10] MEDS ORDERED: DOCUSATE SODIUM SUGAR FREE 100MG/10ML UDC NG SCH (12:37)
[2019-07-10 14:04] LABS: PLATELET ESTIMATE NORMAL
== END 2019-07-10 19:50 | DRG 870 ==
LOC: ER 15:29 → 5EST 17:11 → EDBEDREQ 17:19 → ENRESERV 21:42
PROVIDERS: ADMIT Internal Medicine; ATTEND Internal Medicine
PROC: 5A1955Z Respiratory Ventilation, Greater than 96 Consecutive Hours (ICD-10-PCS; principal; 2019-06-28)
PROC: 02HV33Z Insertion of Infusion Device into Superior Vena Cava, Percutaneous Approach (ICD-10-PCS; 2019-06-30)
PROC: B548ZZA Ultrasonography of Superior Vena Cava, Guidance (ICD-10-PCS; 2019-06-30)
PROC: 30233N1 Transfusion of Nonautologous Red Blood Cells into Peripheral Vein, Percutaneous Approach (ICD-10-PCS; 2019-07-08)
DX: A41.52 Sepsis due to Pseudomonas (principal); J96.21 Acute and chronic respiratory failure with hypoxia; I50.23 Acute on chronic systolic (congestive) heart failure; J15.1 Pneumonia due to Pseudomonas; J69.0 Pneumonitis due to inhalation of food and vomit; G93.41 Metabolic encephalopathy; I42.9 Cardiomyopathy, unspecified; E87.1 Hypo-osmolality and hyponatremia; Z99.11 Dependence on respirator [ventilator] status; J44.0 Chronic obstructive pulmonary disease with (acute) lower respiratory infection; Z16.24 Resistance to multiple antibiotics; E46 Unspecified protein-calorie malnutrition; D68.9 Coagulation defect, unspecified; K52.1 Toxic gastroenteritis and colitis; R13.10 Dysphagia, unspecified; E87.8 Other disorders of electrolyte and fluid balance, not elsewhere classified; D63.8 Anemia in other chronic diseases classified elsewhere; E87.6 Hypokalemia; I11.0 Hypertensive heart disease with heart failure; I27.20 Pulmonary hypertension, unspecified; E16.2 Hypoglycemia, unspecified; J44.9 Chronic obstructive pulmonary disease, unspecified; I49.3 Ventricular premature depolarization; I48.0 Paroxysmal atrial fibrillation; I49.1 Atrial premature depolarization; K59.00 Constipation, unspecified; Z20.828 Contact with and (suspected) exposure to other viral communicable diseases; K70.31 Alcoholic cirrhosis of liver with ascites; Z86.73 Personal history of transient ischemic attack (TIA), and cerebral infarction without residual deficits; Z87.891 Personal history of nicotine dependence; Z93.1 Gastrostomy status; Z95.810 Presence of automatic (implantable) cardiac defibrillator; Z93.0 Tracheostomy status; Z78.1 Physical restraint status; Z79.01 Long term (current) use of anticoagulants; Z68.25 Body mass index [BMI] 25.0-25.9, adult; T47.4X5A Adverse effect of other laxatives, initial encounter; Y92.89 Other specified places as the place of occurrence of the external cause
CPT/HCPCS: 36415; 36600; 71045; 74018; 76705; 76937; 80048; 80053; 80076; 81003; 82270; 82375; 82550; 82607; 82728; 82746; 82805; 82962; 83036; 83540; 83550; 83605; 83735; 83880; 84100; 84145; 84295; 84484; 85025; 85027; 85044; 86705; 86709; 86803; 86850; 86900; 86920; 87070; 87077; 87186; 87340; 87635; 93005; 93970; 94003; 94640; 99291; C1725; J0692; J1580; J1630; J1650; J1940; J1956; J2060; J2185; J2405; J3260; J3490; J7050; J7060; P9016; U0003-CS

== ENCOUNTER 2020-01-05 09:41 | Emergency (ER) | payer MEDICARE, MEDICAID, OTHER ==
[~2020-01-05] VITALS: Ht 170.2 cm; Wt 54.0 kg
[~2020-01-05 09:41] MED LIST changes: +AMIN30LI2 GT; +BISA10SU62 RC; +CARV3.1242 GT; +CRAN3875 GT; +DOCU-138 GT; +FURO40TA5 MT; +HALO5TAB PO; +LACT10SO6 GT; +LEVO50TA8 GT; +METO-293 GT; +MIDO10TA MT; +MOM GT; +MULT-230 GT; +NA P230E RC; +OMEP20CA14 GT; +ONDA4TAB5 GT; +PROT40 GT; +RIFA550T GT; +RISP0.5T19 GT; +TOPUD GT; +ZINC220C6 GT
[2020-01-05 10:31] LABS: HEMATOCRIT. 34.3 % (42.0-52.0); HEMOGLOBIN. 10.7 g/dL (14.0-18.0); MEAN CORPUSCULAR HEMOGLOBIN 25.8 pg (28.0-32.0); MEAN CORPUSCULAR VOLUME 82.6 fL (80.0-94.0); MEAN PLATELET VOLUME 8.4 fl (7.4-10.4); PLATELET 256 x1000/uL (130-400); RED BLOOD CELL COUNT 4.15 mill/uL (4.7-6.1); RED CELL DISTRIBUTION WIDTH 20.2 % (11.6-14.6)
[2020-01-05 10:42] LABS: CHLORIDE 99 mEq/L (98-107)
[2020-01-05 10:43] LABS: INR 1.3; PARTIAL THROMBOPLASTIN TIME 24.2 sec (23.4-31.0); PROTHROMBIN TIME 13.6 sec (9.6-11.0)
[2020-01-05 11:55] LABS: PLATELET ESTIMATE NORMAL
[2020-01-05] MEDS ORDERED: LIDOCAINE HCL 1% 20ML VIAL (Pyxis) INJ ONE (15:33)
[2020-01-05] MEDS ORDERED: SODIUM BICARBONATE 4% (2.4MEQ) 5ML VIAL IV ONE (15:34)
[2020-01-05] MEDS ORDERED: SPIRONOLACTONE 25MG TABLET PEG SCH (17:00)
[2020-01-05 21:30] VITALS: BP 99/67
[2020-01-06] MEDS ORDERED: FUROSEMIDE 40MG TABLET PO SCH (09:00)
== END 2020-01-05 23:07 | disposition home or self-care (01) ==
LOC: ER 09:41
DX: Z03.818 Encounter for observation for suspected exposure to other biological agents ruled out (principal); K70.31 Alcoholic cirrhosis of liver with ascites; F10.129 Alcohol abuse with intoxication, unspecified; Y90.9 Presence of alcohol in blood, level not specified; I48.91 Unspecified atrial fibrillation; I11.0 Hypertensive heart disease with heart failure; I50.9 Heart failure, unspecified; Z78.1 Physical restraint status; Z87.09 Personal history of other diseases of the respiratory system; Z95.810 Presence of automatic (implantable) cardiac defibrillator; Z79.01 Long term (current) use of anticoagulants
CPT/HCPCS: 36415; 49083; 80053; 85025; 85610; 85730; 87070; 87075; 87205; 87426; 89050; 93005; 99285; J3490

== ENCOUNTER 2020-01-20 08:25 | Emergency (ER) | payer MEDICARE, MEDICAID ==
[~2020-01-20] VITALS: Ht 170.2 cm; Wt 64.0 kg
[~2020-01-20 08:25] MED LIST changes: -FURO40TA5 MT
[2020-01-20] MEDS ORDERED: SODIUM CHLORIDE 0.9% 1,000 ML IV ONE (09:15)
[2020-01-20 09:50] LABS: BASOPHILS % 0.4 % (0.0-2.0); EOSINOPHILS % 0.3 % (0.0-5.0); HEMATOCRIT. 32.5 % (42.0-52.0); HEMOGLOBIN. 9.9 g/dL (14.0-18.0); LYMPHOCYTES % 8.9 % (20.0-50.0); MEAN CORPUSCULAR HEMOGLOBIN 24.8 pg (28.0-32.0); MEAN CORPUSCULAR VOLUME 81.6 fL (80.0-94.0); MEAN PLATELET VOLUME 8.3 fl (7.4-10.4); MONOCYTES % 13.9 % (2.0-8.0); NEUTROPHILS % 76.5 % (40.0-76.0); PLATELET 325 x1000/uL (130-400); RED BLOOD CELL COUNT 3.99 mill/uL (4.7-6.1); RED CELL DISTRIBUTION WIDTH 20.1 % (11.6-14.6)
[2020-01-20 09:56] LABS: CHLORIDE 110 mEq/L (98-107); CLARITY URINE CLEAR (CLEAR); COLOR URINE DARK YELLOW (YELLOW); KETONES URINE NEGATIVE (NEGATIVE); LEUKOCYTE ESTERASE URINE 1+ (NEGATIVE); NITRITE URINE NEGATIVE (NEGATIVE); OCCULT BLOOD URINE NEGATIVE (NEGATIVE); PROTEIN URINE 1+ (NEGATIVE); SPECIFIC GRAVITY URINE 1.023 (1.005-1.030)
[2020-01-20 10:00] LABS: INR 1.4; PROTHROMBIN TIME 14.1 sec (9.6-11.0)
[2020-01-20 10:36] LABS: BG CARBOXYHEMOGLOBIN 0.2 % (0.5-1.5); BG DEOXYHEMOGLOBIN 3.1 % (0.0-5.0); BG FRACTION INSPIRED OXYGEN 30; BG HCO3 ACT 22.2 mmol/L (22.0-26.0); BG METHEMOGLOBIN 0.2 % (0.0-1.5); BG OXYGEN SATURATION 96.9 % (92.0-98.5); BG OXYHEMOGLOBIN 96.5 % (94.0-97.0); BG PO2 90.8 mmHg (75.0-100.0); BG SAMPLE SITE LEFT BRACHIAL; BG TOTAL HEMOGLOBIN 10.4 g/dL (12.0-18.0); BG TOTAL RESPIRATORY RATE 29 b/min; BG VENT MODE VENT - AC
[2020-01-20] MEDS ORDERED: SODIUM BICARBONATE 8.4% 1 MEQ/ML 50ML SYR IV ONE (11:15)
[2020-01-20] MEDS ORDERED: INSULIN REGULAR (HUMULIN R) 300UNITS/3ML VIAL IV ONE (11:15)
[2020-01-20] MEDS ORDERED: DEXTROSE 50% WATER 50ML SYRINGE IV ONE (11:15)
[2020-01-20] MEDS ORDERED: SODIUM CHLORIDE 0.9% 500 ML IV ONE (12:00)
[2020-01-20 13:45] VITALS: BP 105/50
== END 2020-01-20 13:45 ==
LOC: ER 08:25 → CMPBEDREQ 18:32
DX: R09.02 Hypoxemia (principal); E87.5 Hyperkalemia; I13.0 Hypertensive heart and chronic kidney disease with heart failure and stage 1 through stage 4 chronic kidney disease, or unspecified chronic kidney disease; N18.9 Chronic kidney disease, unspecified; I50.9 Heart failure, unspecified; Z99.11 Dependence on respirator [ventilator] status; I48.91 Unspecified atrial fibrillation; E03.9 Hypothyroidism, unspecified; K76.9 Liver disease, unspecified; J44.9 Chronic obstructive pulmonary disease, unspecified; Z98.890 Other specified postprocedural states; Z93.0 Tracheostomy status; Z93.1 Gastrostomy status; Z79.899 Other long term (current) drug therapy
CPT/HCPCS: 36415; 36600; 71045; 80053; 81003; 82375; 82805; 83880; 84484; 85025; 85610; 87040; 93005; 96361; 96374; 96375; 99285; J1815; J3490; J7030; J7040; 94002